=== PATIENT | female | born 1930 | race Caucasian/White ===

== ENCOUNTER 2016-06-30 12:45 | Inpatient (IN) | payer OTHER, MEDICAID ==
[~2016-06-30 12:45] MED LIST: CITROMA ONE
[2016-06-30] MEDS ORDERED: NS 1000 ML 1,000 ML IV ONE ×2 (12:48→18:33)
[2016-06-30] MEDS ORDERED: CALCIUM GLUCONATE 10% IV ONE (12:49)
[2016-06-30] MEDS ORDERED: HUMULIN R 100 UNITS in NS 100 ML IV 100 ML IV PRN (12:49)
[2016-06-30] MEDS ORDERED: LASIX IVP ONE ×2 (12:54→13:13)
[2016-06-30] MEDS ORDERED: PROVENTIL NEB TX 0.083% 2.5MG/ 3ML NEB ONE (12:56)
--- NOTE | 2016-06-30 12:57 | DR.GENAD ---
HPI - PCP Primary Care Physician: Grant - Complaint/Symptoms Chief Complaint Doctors Comments: Patient sent from CT secondary to elevated potassium level 6.5. Daughter states that she has had decreasing PO intake for one month. PMH - PMH Past Medical History: Anxiety, Dementia, Depression, GERD, Hypertension, Hypothyroidism, Renal Disease Past Surgical History: Yes Surgical History: Cholecystectomy, Hysterectomy, Ortho Surgery, Thyroidectomy - Family History Family Medical History: Coronary Artery Disease, Heart Failure - Social History Do you use any recreational Drugs:: No ROS - Review of Systems Constitutional: No Symptoms Reported Eyes: No Symptoms Reported ENTM: No Symptoms Reported Respiratoy: No Symptoms Reported Cardiovascular: No Symptoms Reported Gastrointestinal/Abdominal: No Symptoms Reported Genitourinary: No Symptoms Reported Neurological: No Symptoms Reported Musculoskeletal: No Symptoms Reported Integumentary: No Symptoms Reported Hematologic/Lymphatic: No Symptoms Reported Endocrine: No Symptoms Reported Psychiatric: No Symptoms Reported All Other Systems: Reviewed and Negative PE - Vital Signs Vitals: Temperature 97.9 F Pulse Rate 67 Respiratory Rate 16 Blood Pressure [Right Arm] 141/72 Blood Pressure [Left Arm] 129/69 Blood Pressure [Left Calf] 158/81 Blood Pressure 112/54 O2 Sat by Pulse Oximetry 98 - General Limitations: No Limitations General Appearance: Alert, In No Apparent Distress - Head Head Exam: Normal Inspection, Atraumatic - Eyes Eye exam: Normal Appearance, PERRL, EOMI - ENT ENT Exam: Normal Exam, Mucous Membranes Dry External Ear Exam: Normal External Inspection TM/Canal Exam: Bilateral Normal Nose Exam: Normal Nose Exam Mouth Exam: Normal Inspection Throat Exam: Normal Inspection - Neck Neck Exam: Normal Inspection - Chest Chest Inspection: Normal Inspection - Respiratory Respiratory Exam: Normal Lung Sounds Bilat Respiratory Exam: Bilateral Clear to Auscultation - Cardiovascular Cardiovascular Exam: Regular Rate - Abdominal Exam Abdominal Exam: Normal Inspection Abdominal Tenderness: negative: RUQ, RLQ, LUQ, LLQ, Epigastrium, Suprapubic, Diffuse, Mild, Moderate, Severe, Other - Extremities Extremities Exam: Normal Inspection - Back Back Exam: Other (large decubitus ulcer) - Neurologic Neurological Exam: Alert, Oriented X3, CN II-XII Intact - Psychiatric Psychiatric Exam: Normal Affect - Skin Skin Exam: Warm, Dry, Intact ROR - Labs Reviewed Laboratory Results Reviewed?: Yes (Urine:nitrite +,Leuk3+, Bld4+wbc 25-50) Result Diagrams: 06/30/16 12:55 06/30/16 12:55 Laboratory: WBC 25.4 X10^3/uL (3.6-10.0) H* 06/30/16 12:55 RBC 3.55 X10^6/uL (3.5-5.4) 06/30/16 12:55 Hgb 11.2 g/dL (12.0-16.0) L 06/30/16 12:55 Hct 34.1 % (36.0-47.0) L 06/30/16 12:55 MCV 96.2 fL (80.0-100.0) 06/30/16 12:55 MCH 31.5 pg (27.0-34.0) 06/30/16 12:55 MCHC 32.8 g/dL (33.0-35.0) L 06/30/16 12:55 RDW 13.1 % (11.6-16.5) 06/30/16 12:55 Plt Count 427 X10^3/uL (150.0-450.0) 06/30/16 12:55 Plt Count Comment Adequate (ADEQUATE) 06/30/16 12:55 MPV 7.5 fL (7.4-11.0) 06/30/16 12:55 Neut % 88.3 % (42.0-75.0) H 06/30/16 12:55 Lymph % 7.7 % (21.0-51.0) L 06/30/16 12:55 [place] % 3.5 % (0.0-13.0) 06/30/16 12:55 Eos % 0.0 % (0.9-2.9) L 06/30/16 12:55 Baso % 0.5 % (0.2-1.0) 06/30/16 12:55 Neut # 22.4 x10^3/uL (2.2-4.8) H 06/30/16 12:55 Lymph # 2.0 X10^3/uL (1.3-2.9) 06/30/16 12:55 [place] # 0.9 x10^3/uL (0.3-0.8) H 06/30/16 12:55 Eos # 0.0 x10^3/uL (0.0-0.2) 06/30/16 12:55 Baso # 0.1 X10^3/uL (0.0-0.1) 06/30/16 12:55 Absolute Nucleated RBC 0.0 /100WBC 06/30/16 12:55 Total Counted 100 06/30/16 12:55 Neutrophils % (Manual) 92 % (39-76) H 06/30/16 12:55 Band Neutrophils % 6 % (0-10) 06/30/16 12:55 Lymphocytes % (Manual) 2 % (13-43) L 06/30/16 12:55 Plt Morphology Comment Normal (NORMAL) 06/30/16 12:55 RBC Morphology Normal (NORMAL) 06/30/16 12:55 Sodium 140 mmol/L (136-145) 06/30/16 12:55 Corrected Sodium 140 mmol/L (136-145) 06/30/16 12:55 Potassium 6.2 mmol/L (3.5-5.1) H* 06/30/16 12:55 Chloride 105 mmol/L (98-107) 06/30/16 12:55 Carbon Dioxide 29.9 mmol/L (21-32) 06/30/16 12:55 BUN 59 mg/dL (7-18) H 06/30/16 12:55 Creatinine 3.54 mg/dL (0.55-1.02) H 06/30/16 12:55 Est GFR (MDRD) Af Amer 16 (>60) L 06/30/16 12:55 Est GFR (MDRD) Non-Af 13 (>60) L 06/30/16 12:55 Glucose 119 mg/dL (65-99) H 06/30/16 12:55 Calcium 8.6 mg/dL (8.5-10.1) 06/30/16 12:55 Corrected Calcium 10.1 mg/dL (8.5-10.1) 06/30/16 12:55 Total Bilirubin 0.90 mg/dL (0.2-1.0) 06/30/16 12:55 AST 10 Units/L (15-37) L 06/30/16 12:55 ALT 10 Units/L (12-78) L 06/30/16 12:55 Alkaline Phosphatase 127 Units/L (46-116) H 06/30/16 12:55 Creatine Kinase 7 Units/L (26-192) L 06/30/16 12:55 CK-MB (CK-2) < 1.0 ng/mL (0-4.0) 06/30/16 12:55 CK/CKMB % Calc 14.3 % (<4) 06/30/16 12:55 Troponin I < 0.02 ng/mL (0-1.5) 06/30/16 12:55 Total Protein 7.0 g/dL (6.4-8.2) 06/30/16 12:55 Albumin 2.1 g/dL (3.4-5.0) L 06/30/16 12:55 Globulin 4.9 g/dL (2.5-4.5) H 06/30/16 12:55 Albumin/Globulin Ratio 0.4 Ratio (1.1-2.1) L 06/30/16 12:55 Specimen Type Catherized urine 06/30/16 13:41 Urine Color Yellow (YELLOW) 06/30/16 13:41 Urine Appearance Cloudy (CLEAR) 06/30/16 13:41 Urine pH 5.0 (5.0 - 8.0) 06/30/16 13:41 Ur Specific [place] 1.010 (1.000-1.030) 06/30/16 13:41 Urine Protein 2+ (NEGATIVE) 06/30/16 13:41 Urine Glucose (UA) Negative (NEGATIVE) 06/30/16 13:41 Urine Ketones 1+ (NEGATIVE) 06/30/16 13:41 Urine Occult Blood 4+ (NEGATIVE) 06/30/16 13:41 Urine Nitrite Positive (NEGATIVE) 06/30/16 13:41 Urine Bilirubin Negative (NEGATIVE) 06/30/16 13:41 Urine Urobilinogen 1+ (NORMAL) 06/30/16 13:41 Ur Leukocyte Esterase 3+ (NEGATIVE) 06/30/16 13:41 Urine RBC 6-10 /HPF (NEGATIVE) 06/30/16 13:41 Urine WBC 25-50 /HPF (NEGATIVE) 06/30/16 13:41 Ur Squamous Epith Cells Rare /HPF (NEGATIVE) 06/30/16 13:41 Urine Bacteria 3+ /HPF (NEGATIVE) 06/30/16 13:41 Ur Culture Indicated? Yes/culture set up 06/30/16 13:41 - Diagnosis Discharge Problem: Hyperkalemia, Dehydration, Renal failure UTI (urinary tract infection) Qualifiers: Urinary tract infection type: acute cystitis Hematuria presence: with hematuria Qualified Code(s): N30.01 - Acute cystitis with hematuria - Follow ups/Referrals Follow ups/Referrals: Dank Burns [Primary Care Provider] - 3 days - Instructions
[2016-06-30] MEDS ORDERED: PROVENTIL NEB TX 0.083% 2.5MG/ 3ML ONE (13:03)
[2016-06-30] MEDS ORDERED: DEMEROL INJ IVP ONE (13:04)
[2016-06-30 13:08] LABS: BASOPHILS # (AUTO) 0.1 X10^3/uL (0.0-0.1); BASOPHILS % (AUTO) 0.5 % (0.2-1.0); HEMATOCRIT 34.1 % (36.0-47.0); HEMOGLOBIN 11.2 g/dL (12.0-16.0); LYMPHOCYTES % (AUTO) 7.7 % (21.0-51.0); MEAN CORPUSCULAR HEMOGLOBIN 31.5 pg (27.0-34.0); MEAN CORPUSCULAR HGB CONC 32.8 g/dL (33.0-35.0); MEAN CORPUSCULAR VOLUME 96.2 fL (80.0-100.0); MEAN PLATELET VOLUME 7.5 fL (7.4-11.0); MONOCYTES # (AUTO) 0.9 x10^3/uL (0.3-0.8); MONOCYTES % (AUTO) 3.5 % (0.0-13.0); NEUTROPHILS # (AUTO) 22.4 x10^3/uL (2.2-4.8); NEUTROPHILS % (AUTO) 88.3 % (42.0-75.0); PLATELET COUNT 427 X10^3/uL (150.0-450.0); RED BLOOD COUNT 3.55 X10^6/uL (3.5-5.4); RED CELL DISTRIBUTION WIDTH 13.1 % (11.6-16.5)
[2016-06-30 13:09] LABS: WHITE BLOOD COUNT 25.4 X10^3/uL (3.6-10.0)
[2016-06-30] MEDS ORDERED: HUMULIN R IV ONE (13:12)
[2016-06-30 13:13] LABS: BAND NEUTROPHILS % 6 % (0-10); PLATELET MORPHOLOGY COMMENT NORMAL (NORMAL)
[2016-06-30] MEDS ORDERED: NS 1000 ML 1,000 ML ONE (13:13)
[2016-06-30] MEDS ORDERED: HUMULIN R ONE (13:14)
[2016-06-30] MEDS ORDERED: DEMEROL INJ ONE (13:14)
[2016-06-30 13:31] LABS: ALANINE AMINOTRANSFERASE 10 Units/L (12-78); ALBUMIN 2.1 g/dL (3.4-5.0); ALKALINE PHOSPHATASE 127 Units/L (46-116); ASPARTATE AMINO TRANSFERASE 10 Units/L (15-37); BLOOD UREA NITROGEN 59 mg/dL (7-18); CALCIUM 8.6 mg/dL (8.5-10.1); CARBON DIOXIDE 29.9 mmol/L (21-32); CHLORIDE 105 mmol/L (98-107); CKMB % 14.3 % (<4); COR CA(FOR HYPOALB) 10.1 mg/dL (8.5-10.1); COR NA(FOR HYPERGLY) 140 mmol/L (136-145); CREATINE KINASE 7 Units/L (26-192); CREATINE KINASE MB < 1.0 ng/mL (0-4.0); CREATININE 3.54 mg/dL (0.55-1.02); GLUCOSE 119 mg/dL (65-99); SODIUM 140 mmol/L (136-145); TROPONIN I < 0.02 ng/mL (0-1.5); eGFR BLACK RACES 16 (>60); eGFR NON BLACK RACES 13 (>60)
--- NOTE | 2016-06-30 13:44 | RAD ---
HISTORY: Chest pain and dehydration Study: Single view chest. Comparison: September 20, 2014. Findings: The trachea is midline. The cardiac silhouette is enlarged with a tortuous thoracic aorta. Backgrou nd changes of obstructive airways disease are observed. The lungs are otherwise grossly clear withou t focal infiltrate or effusion. The bony thorax is unremarkable. IMPRESSION: 1. No acute cardiopulmonary changes seen, as above. 2. Cardiomegaly and aortic ectasia/dilatation remains. Reported By:
[2016-06-30] MEDS ORDERED: ZOFRAN INJ 4 MG VIAL IVP ONE (13:53)
[2016-06-30] MEDS ORDERED: ZOFRAN INJ 4 MG VIAL ONE (13:54)
[2016-06-30 13:56] LABS: BILIRUBIN,URINE NEGATIVE (NEGATIVE); BLOOD/HEMOGLOBIN,URINE 4+ (NEGATIVE); GLUCOSE, URINE NEGATIVE (NEGATIVE); KETONES,URINE 1+ (NEGATIVE); LEUKOCYTE ESTERASE ,URINE 3+ (NEGATIVE); NITRITES,URINE POSITIVE (NEGATIVE); PROTEIN,URINE 2+ (NEGATIVE); UROBILINOGEN,URINE 1+ (NORMAL)
[2016-06-30 14:02] LABS: APPEARANCE,URINE CLOUDY (CLEAR); BACTERIA,URINE 3+ /HPF (NEGATIVE); COLOR,URINE YELLOW (YELLOW); SQUAMOUS EPITHELIAL CELL,UR RARE /HPF (NEGATIVE)
[2016-06-30] MEDS ORDERED: TYLENOL 500 MG TAB EXTRA STRENGTH PO PRN (14:40)
[2016-06-30] MEDS ORDERED: DEMEROL INJ IVP PRN (14:51)
[2016-06-30] MEDS ORDERED: LR 1000 ML IV 1,000 ML IV SCH (15:00)
[2016-06-30] MEDS ORDERED: LR 1000 ML IV 1,000 ML IV ONE (15:10)
[2016-06-30] MEDS: AMPICILLIN VIAL 1 GM 1 GM in NS 50 ML IV + SPIKE MINIBAG* 50 ML IV SCH ×2 (16:52→21:16)
[2016-06-30] MEDS: DURAGESIC 75 mcg/HR PATCH TD SCH (16:52)
[2016-06-30 16:57] LABS: BLOOD UREA NITROGEN 59 mg/dL (7-18); CALCIUM 8.5 mg/dL (8.5-10.1); CARBON DIOXIDE 28.6 mmol/L (21-32); CHLORIDE 107 mmol/L (98-107); CREATININE 3.51 mg/dL (0.55-1.02); GLUCOSE 88 mg/dL (65-99); SODIUM 142 mmol/L (136-145); eGFR BLACK RACES 16 (>60); eGFR NON BLACK RACES 13 (>60)
[2016-06-30] MEDS ORDERED: TYGACIL 50 MG VIAL 100 MG in NS 100 ML IV 100 ML IV ONE (18:29)
[2016-06-30] MEDS ORDERED: KAYEXALATE PO ONE (18:34)
[2016-06-30 19:39] VITALS: BMI 30.7
[2016-06-30] MEDS: NS 1000 ML 1,000 ML IV SCH (19:46)
[2016-06-30] MEDS: SNACK - Diabetic Appropriate PO SCH (20:14)
[2016-06-30 20:52] LABS: CALCIUM 8.4 mg/dL (8.5-10.1); CARBON DIOXIDE 30.5 mmol/L (21-32); CREATININE 3.59 mg/dL (0.55-1.02)
[2016-06-30] MEDS ORDERED: [UNRECOGNIZED DRUG - OTHER] PO SCH (21:00)
[2016-06-30] MEDS ORDERED: LASIX PO SCH (21:00)
[2016-06-30] MEDS: ARTIFICIAL TEARS DROPS EACHEYE SCH (21:19)
[2016-06-30] MEDS: NORCO 10/325 TAB PO SCH (21:20)
[2016-06-30] MEDS: NAPROSYN PO SCH (21:20)
[2016-06-30] MEDS: ELDERTONIC + WINE PO SCH (21:23)
[2016-06-30] MEDS: PATIENT'S HOME MEDICATION RESPIRATORY (Potassium Chloride [Potassium Chloride Er] 20 MEQ) PO SCH (23:19)
[2016-07-01] MEDS: AMPICILLIN VIAL 1 GM 1 GM in NS 50 ML IV + SPIKE MINIBAG* 50 ML IV SCH ×2 (03:00→09:13)
[2016-07-01 03:01] LABS: BASOPHILS # (AUTO) 0.1 X10^3/uL (0.0-0.1); BASOPHILS % (AUTO) 0.4 % (0.2-1.0); HEMATOCRIT 29.2 % (36.0-47.0); HEMOGLOBIN 9.4 g/dL (12.0-16.0); LYMPHOCYTES # (AUTO) 1.2 X10^3/uL (1.3-2.9); MEAN CORPUSCULAR HEMOGLOBIN 31.4 pg (27.0-34.0); MEAN CORPUSCULAR HGB CONC 32.3 g/dL (33.0-35.0); MEAN CORPUSCULAR VOLUME 97.1 fL (80.0-100.0); MEAN PLATELET VOLUME 7.6 fL (7.4-11.0); MONOCYTES # (AUTO) 0.6 x10^3/uL (0.3-0.8); MONOCYTES % (AUTO) 3.1 % (0.0-13.0); NEUTROPHILS % (AUTO) 90.5 % (42.0-75.0); PLATELET COUNT 333 X10^3/uL (150.0-450.0); RED CELL DISTRIBUTION WIDTH 13.2 % (11.6-16.5); WHITE BLOOD COUNT 19.9 X10^3/uL (3.6-10.0)
[2016-07-01 03:03] LABS: BLOOD UREA NITROGEN 60 mg/dL (7-18); CALCIUM 7.7 mg/dL (8.5-10.1); CARBON DIOXIDE 29.2 mmol/L (21-32); CHLORIDE 107 mmol/L (98-107); CREATININE 3.25 mg/dL (0.55-1.02); GLUCOSE 109 mg/dL (65-99); SODIUM 141 mmol/L (136-145); eGFR BLACK RACES 17 (>60); eGFR NON BLACK RACES 14 (>60)
[2016-07-01] MEDS: NS 1000 ML 1,000 ML IV SCH ×4 (03:10→23:00)
[2016-07-01 03:18] LABS: BAND NEUTROPHILS % 20 % (0-10); PLATELET MORPHOLOGY COMMENT NORMAL (NORMAL)
[2016-07-01] MEDS: ELDERTONIC + WINE PO SCH ×3 (03:25→21:34)
[2016-07-01] MEDS ORDERED: TYGACIL 50 MG VIAL 50 MG in NS 100 ML IV 100 ML IV SCH (04:29)
[2016-07-01] MEDS: PATIENT'S HOME MEDICATION RESPIRATORY (Potassium Chloride [Potassium Chloride Er] 20 MEQ) PO SCH (05:40)
[2016-07-01] MEDS: NORCO 10/325 TAB PO SCH ×5 (06:15→21:33)
[2016-07-01 08:28] LABS: ALBUMIN 1.7 g/dL (3.4-5.0); BILIRUBIN,DIRECT 0.11 mg/dL (0-0.2); TOTAL PROTEIN 5.8 g/dL (6.4-8.2)
[2016-07-01] MEDS: ALBUMIN HUMAN 25%- 100ML 100 ML IV SCH (09:12)
[2016-07-01] MEDS: ARTIFICIAL TEARS DROPS EACHEYE SCH ×2 (09:13→21:33)
[2016-07-01] MEDS: ZINC SULFATE PO SCH (09:13)
[2016-07-01] MEDS: COLACE CAP 100 MG PO SCH (09:13)
[2016-07-01] MEDS: PEPCID TAB 20 MG PO SCH (09:13)
[2016-07-01] MEDS: SYNTHROID 100 mcg TAB PO SCH (09:13)
[2016-07-01] MEDS: NAPROSYN PO SCH ×3 (09:13→21:34)
[2016-07-01] MEDS ORDERED: PHARMACY CONSULT - DOSE _____ XX SCH (10:00)
[2016-07-01] MEDS: LEVAQUIN PREMIX IV 750 MG 750 MG/150 ML BAG IV SCH (11:16)
--- NOTE | 2016-07-01 13:25 | PCM.PROG ---
Progress Note - Progress Note for Day of Date: 07/01/16 - Subjective Subjective: PATIENT RESTS IN BED, DAUGHTER AT BEDSIDE. PATIENT IS DROWSY, CONFUSED. PATIENT IS ADMITTED FOR HYPERKALEMIA, UTI, AND DEHYDRATION. DAUGHTER STATES PATIENT'S APPETITE HAS BEEN VERY POOR. SHE STATES PATIENT HAS HAD DECREASED ORAL INTAKE FOR SEVERAL WEEKS AND IS NOTED WITH NO DESIRE TO EAT. DAUGHTER REPORTS PATIENT HAD BEEN AMBULATING AT THE [facility], HOWEVER, NOW WAS UNABLE DUE TO WEAKNESSF ROM POOR NUTRITION. WE SPEAK WITH DAUGHTER CONCERNING POSSIBLE IV NUTRITION, IF NO IMPROVEMENT. SHE VOICES UNDERSTANDING. CBC WNL EXCEPT: WBC 19.9, H/H 9.4/29.2. CMP WNL EXCEPT: BUN/CREAT 60/3.25, GFR 14, GLUCOSE 109, CALCIUM 7.7, TOT PROTEIN 5.8, ALBUMIN 1.7. WE WILL CONTINUE IV HYDRATION. WE WILL START ALBUMIN IV, CHANGE ANTIBIOTICS TO FORTAZ AND LEVAQUIN, CONSULT SPEECH THERAPY TO ENUSRE SAFE SWALLOWING, AND CONTINUE TO MONITOR. WE WILL FOLLOW UP IN AM WITH ADDITIONAL LABS. - Past Medical Family Social History Past Med/Fam/Surg Hx: No changes since H&P Allergies: Allergies Codeine Allergy (Mild, Verified 06/30/16 12:48) CONFUSION Morphine Allergy (Mild, Verified 06/30/16 12:48) CONFUSION - Review of Systems ROS: No change since H&P - Vital Signs and I&O's Vital Signs: Temperature 97.5 F Pulse Rate [Left Brachial] 74 Respiratory Rate 20 Blood Pressure [Right Arm] 82/35 O2 Sat by Pulse Oximetry 100 Intake and Output: Intake & Output 06/29/16 06/30/16 07/01/16 07/02/16 10:59 11:59 11:59 11:59 Intake Total 2200 Output Total 350 Balance 1850 - Physical Exam Oriented: Not Oriented Eyes: Normal. negative: Discharge, Redness Ear: Normal. negative: Swelling, Ecchymosis, Hemotypanum, Abrasion, Laceration Nose: Normal. negative: Injected, Discharge, Blood Throat: Dry. negative: Tonsillar Hypertrophy, Red, Exudate Respiratory: Normal Cardiovascular: Normal. negative: Murmur, Edema : Hematuria, Frequency, Discharge Auscultation: Bowel Sounds: Decreased. negative: Bruit Palpation: Normal. negative: Spleen Enlarged, Liver Enlarged, Mass Pulsatile Tenderness: Normal. negative: Rebound, Guarding, Rigidity Skin: Decreased Turgur, Wound (Right Buttock: 7 small areas of breakdown, MASD; Sacrum: [id number], MASD; Right Knee skin tear; Left upper arm skin tear; Left Lower leg skin tear) Musculoskeletal: Instability (Non-ambulatory) Psychiatric: Other (Confusion) Mood Description: Flat Affect: Flat Speech Pattern: Clear, Inappropriate - Laboratory and Diagnostics Result Diagrams: 07/01/16 02:50 07/01/16 02:50 Labs: Laboratory WBC 19.9 X10^3/uL (3.6-10.0) H 07/01/16 02:50 RBC 3.00 X10^6/uL (3.5-5.4) L 07/01/16 02:50 Hgb 9.4 g/dL (12.0-16.0) L 07/01/16 02:50 Hct 29.2 % (36.0-47.0) L 07/01/16 02:50 MCV 97.1 fL (80.0-100.0) 07/01/16 02:50 MCH 31.4 pg (27.0-34.0) 07/01/16 02:50 MCHC 32.3 g/dL (33.0-35.0) L 07/01/16 02:50 RDW 13.2 % (11.6-16.5) 07/01/16 02:50 Plt Count 333 X10^3/uL (150.0-450.0) 07/01/16 02:50 Plt Count Comment Adequate (ADEQUATE) 07/01/16 02:50 MPV 7.6 fL (7.4-11.0) 07/01/16 02:50 Neut % 90.5 % (42.0-75.0) H 07/01/16 02:50 Lymph % 6.0 % (21.0-51.0) L 07/01/16 02:50 [place] % 3.1 % (0.0-13.0) 07/01/16 02:50 Eos % 0.0 % (0.9-2.9) L 07/01/16 02:50 Baso % 0.4 % (0.2-1.0) 07/01/16 02:50 Neut # 18.0 x10^3/uL (2.2-4.8) H 07/01/16 02:50 Lymph # 1.2 X10^3/uL (1.3-2.9) L 07/01/16 02:50 [place] # 0.6 x10^3/uL (0.3-0.8) 07/01/16 02:50 Eos # 0.0 x10^3/uL (0.0-0.2) 07/01/16 02:50 Baso # 0.1 X10^3/uL (0.0-0.1) 07/01/16 02:50 Absolute Nucleated RBC 0.0 /100WBC 07/01/16 02:50 Total Counted 100 07/01/16 02:50 Neutrophils % (Manual) 69 % (39-76) 07/01/16 02:50 Band Neutrophils % 20 % (0-10) H 07/01/16 02:50 Lymphocytes % (Manual) 10 % (13-43) L 07/01/16 02:50 Monocytes % (Manual) 1 % (4-9) L 07/01/16 02:50 Plt Morphology Comment Normal (NORMAL) 07/01/16 02:50 RBC Morphology Normal (NORMAL) 07/01/16 02:50 Sodium 141 mmol/L (136-145) 07/01/16 02:50 Corrected Sodium TNP 07/01/16 02:50 Potassium 4.5 mmol/L (3.5-5.1) 07/01/16 02:50 Chloride 107 mmol/L (98-107) 07/01/16 02:50 Carbon Dioxide 29.2 mmol/L (21-32) 07/01/16 02:50 BUN 60 mg/dL (7-18) H 07/01/16 02:50 Creatinine 3.25 mg/dL (0.55-1.02) H 07/01/16 02:50 Est GFR (MDRD) Af Amer 17 (>60) L 07/01/16 02:50 Est GFR (MDRD) Non-Af 14 (>60) L 07/01/16 02:50 Glucose 109 mg/dL (65-99) H 07/01/16 02:50 Calcium 7.7 mg/dL (8.5-10.1) L 07/01/16 02:50 Corrected Calcium 10.1 mg/dL (8.5-10.1) 06/30/16 12:55 Total Bilirubin 0.60 mg/dL (0.2-1.0) 07/01/16 02:50 Direct Bilirubin 0.11 mg/dL (0-0.2) 07/01/16 02:50 Indirect Bilirubin 0.49 mg/dL (0.2-0.8) 07/01/16 02:50 AST 12 Units/L (15-37) L 07/01/16 02:50 ALT 9 Units/L (12-78) L 07/01/16 02:50 Alkaline Phosphatase 110 Units/L (46-116) 07/01/16 02:50 Creatine Kinase 7 Units/L (26-192) L 06/30/16 12:55 CK-MB (CK-2) < 1.0 ng/mL (0-4.0) 06/30/16 12:55 CK/CKMB % Calc 14.3 % (<4) 06/30/16 12:55 Troponin I < 0.02 ng/mL (0-1.5) 06/30/16 12:55 Total Protein 5.8 g/dL (6.4-8.2) L 07/01/16 02:50 Albumin 1.7 g/dL (3.4-5.0) L 07/01/16 02:50 Globulin 4.1 g/dL (2.5-4.5) 07/01/16 02:50 Albumin/Globulin Ratio 0.4 Ratio (1.1-2.1) L 07/01/16 02:50 Specimen Type Catherized urine 06/30/16 13:41 Urine Color Yellow (YELLOW) 06/30/16 13:41 Urine Appearance Cloudy (CLEAR) 06/30/16 13:41 Urine pH 5.0 (5.0 - 8.0) 06/30/16 13:41 Ur Specific [place] 1.010 (1.000-1.030) 06/30/16 13:41 Urine Protein 2+ (NEGATIVE) 06/30/16 13:41 Urine Glucose (UA) Negative (NEGATIVE) 06/30/16 13:41 Urine Ketones 1+ (NEGATIVE) 06/30/16 13:41 Urine Occult Blood 4+ (NEGATIVE) 06/30/16 13:41 Urine Nitrite Positive (NEGATIVE) 06/30/16 13:41 Urine Bilirubin Negative (NEGATIVE) 06/30/16 13:41 Urine Urobilinogen 1+ (NORMAL) 06/30/16 13:41 Ur Leukocyte Esterase 3+ (NEGATIVE) 06/30/16 13:41 Urine RBC 6-10 /HPF (NEGATIVE) 06/30/16 13:41 Urine WBC 25-50 /HPF (NEGATIVE) 06/30/16 13:41 Ur Squamous Epith Cells Rare /HPF (NEGATIVE) 06/30/16 13:41 Urine Bacteria 3+ /HPF (NEGATIVE) 06/30/16 13:41 Ur Culture Indicated? Yes/culture set up 06/30/16 13:41 - Plan (1) Dehydration Status: Acute Plan: CONTINUE IV FLUIDS, MONITOR LABS. (2) Hyperkalemia Status: Acute Plan: ABOVE. (3) Renal failure Status: Acute Plan: ABOVE. (4) UTI (urinary tract infection) Status: Acute Qualifiers: Urinary tract infection type: acute cystitis Hematuria presence: with hematuria Indwelling urinary catheter type: I Encounter type: E Qualified Code(s): N30.01 - Acute cystitis with hematuria Plan: START FORTAZ, LEVAQUIN, MONITOR. (5) CHF (congestive heart failure) Status: Chronic Qualifiers: Congestive heart failure type: combined Congestive heart failure chronicity : chronic Qualified Code(s): I50.42 - Chronic combined systolic (congestive) and diastolic (congestive) heart failure (6) Dementia Status: Chronic Qualifiers: Dementia type: vascular dementia Alzheimer's disease onset: A Dementia behavioral disturbance: without behavioral disturbance Qualified Code(s): F01.50 - Vascular dementia without behavioral disturbance (7) HTN (hypertension) Status: Chronic Qualifiers: Hypertension type: essential hypertension Qualified Code(s): I10 - Essential (primary) hypertension (8) Hypothyroidism Status: Chronic Qualifiers: Hypothyroidism type: acquired Qualified Code(s): E03.9 - Hypothyroidism, unspecified
[2016-07-01] MEDS: ZOSYN VIAL 2.25 GM 2.25 GM in NS 100 ML IV + SPIKE MINIBAG* 100 ML IV SCH ×2 (13:52→21:21)
[2016-07-01] MEDS: SNACK - Diabetic Appropriate PO SCH (21:32)
[2016-07-02] MEDS: NS 1000 ML 1,000 ML IV SCH ×6 (02:11→23:18)
[2016-07-02] MEDS: ZOSYN VIAL 2.25 GM 2.25 GM in NS 100 ML IV + SPIKE MINIBAG* 100 ML IV SCH ×3 (06:15→21:18)
[2016-07-02] MEDS: NORCO 10/325 TAB PO SCH ×3 (06:16→21:25)
[2016-07-02 06:20] LABS: BASOPHILS % (AUTO) 0.1 % (0.2-1.0); HEMATOCRIT 28.8 % (36.0-47.0); HEMOGLOBIN 9.4 g/dL (12.0-16.0); LYMPHOCYTES # (AUTO) 1.3 X10^3/uL (1.3-2.9); LYMPHOCYTES % (AUTO) 9.2 % (21.0-51.0); MEAN CORPUSCULAR HEMOGLOBIN 31.8 pg (27.0-34.0); MEAN CORPUSCULAR HGB CONC 32.7 g/dL (33.0-35.0); MEAN CORPUSCULAR VOLUME 97.1 fL (80.0-100.0); MEAN PLATELET VOLUME 7.7 fL (7.4-11.0); MONOCYTES # (AUTO) 0.4 x10^3/uL (0.3-0.8); MONOCYTES % (AUTO) 3.2 % (0.0-13.0); NEUTROPHILS # (AUTO) 12.1 x10^3/uL (2.2-4.8); NEUTROPHILS % (AUTO) 87.5 % (42.0-75.0); PLATELET COUNT 358 X10^3/uL (150.0-450.0); RED BLOOD COUNT 2.96 X10^6/uL (3.5-5.4); RED CELL DISTRIBUTION WIDTH 13.1 % (11.6-16.5); WHITE BLOOD COUNT 13.8 X10^3/uL (3.6-10.0)
[2016-07-02 06:36] LABS: ALANINE AMINOTRANSFERASE 11 Units/L (12-78); ALBUMIN 1.9 g/dL (3.4-5.0); ALKALINE PHOSPHATASE 119 Units/L (46-116); ASPARTATE AMINO TRANSFERASE 11 Units/L (15-37); BLOOD UREA NITROGEN 57 mg/dL (7-18); CALCIUM 7.4 mg/dL (8.5-10.1); CARBON DIOXIDE 27.1 mmol/L (21-32); CHLORIDE 114 mmol/L (98-107); COR CA(FOR HYPOALB) 9.1 mg/dL (8.5-10.1); CREATININE 2.58 mg/dL (0.55-1.02); GLUCOSE 88 mg/dL (65-99); TOTAL PROTEIN 5.7 g/dL (6.4-8.2); eGFR BLACK RACES 23 (>60); eGFR NON BLACK RACES 19 (>60)
[2016-07-02 06:46] LABS: SODIUM 151 mmol/L (136-145)
[2016-07-02] MEDS: COLACE CAP 100 MG PO SCH (08:15)
[2016-07-02] MEDS: NAPROSYN PO SCH ×2 (08:15→21:25)
[2016-07-02] MEDS: SYNTHROID 100 mcg TAB PO SCH (08:16)
[2016-07-02] MEDS: ZINC SULFATE PO SCH (08:16)
[2016-07-02] MEDS: ARTIFICIAL TEARS DROPS EACHEYE SCH ×2 (08:54→21:22)
[2016-07-02] MEDS: ALBUMIN HUMAN 25%- 100ML 100 ML IV SCH (08:57)
[2016-07-02] MEDS: SNACK - Diabetic Appropriate PO SCH (21:24)
[2016-07-02] MEDS: ELDERTONIC + WINE PO SCH (21:24)
[2016-07-03] MEDS: NS 1000 ML 1,000 ML IV SCH (03:30)
[2016-07-03] MEDS: ZOSYN VIAL 2.25 GM 2.25 GM in NS 100 ML IV + SPIKE MINIBAG* 100 ML IV SCH ×3 (05:02→21:22)
[2016-07-03] MEDS: NORCO 10/325 TAB PO SCH ×4 (05:03→22:29)
[2016-07-03 06:16] LABS: BASOPHILS % (AUTO) 0.3 % (0.2-1.0); EOSINOPHILS % (AUTO) 0.1 % (0.9-2.9); HEMATOCRIT 27.9 % (36.0-47.0); HEMOGLOBIN 9.2 g/dL (12.0-16.0); LYMPHOCYTES # (AUTO) 0.8 X10^3/uL (1.3-2.9); LYMPHOCYTES % (AUTO) 8.2 % (21.0-51.0); MEAN CORPUSCULAR HEMOGLOBIN 31.9 pg (27.0-34.0); MEAN CORPUSCULAR VOLUME 96.5 fL (80.0-100.0); MEAN PLATELET VOLUME 7.5 fL (7.4-11.0); MONOCYTES # (AUTO) 0.4 x10^3/uL (0.3-0.8); MONOCYTES % (AUTO) 4.3 % (0.0-13.0); NEUTROPHILS % (AUTO) 87.1 % (42.0-75.0); PLATELET COUNT 301 X10^3/uL (150.0-450.0); RED BLOOD COUNT 2.89 X10^6/uL (3.5-5.4); RED CELL DISTRIBUTION WIDTH 13.2 % (11.6-16.5); WHITE BLOOD COUNT 10.3 X10^3/uL (3.6-10.0)
[2016-07-03 06:25] LABS: ALANINE AMINOTRANSFERASE 9 Units/L (12-78); ALBUMIN 1.6 g/dL (3.4-5.0); ALKALINE PHOSPHATASE 123 Units/L (46-116); ASPARTATE AMINO TRANSFERASE 11 Units/L (15-37); BLOOD UREA NITROGEN 49 mg/dL (7-18); CALCIUM 7.4 mg/dL (8.5-10.1); CARBON DIOXIDE 23.6 mmol/L (21-32); COR CA(FOR HYPOALB) 9.3 mg/dL (8.5-10.1); CREATININE 2.07 mg/dL (0.55-1.02); GLUCOSE 92 mg/dL (65-99); TOTAL PROTEIN 5.3 g/dL (6.4-8.2); eGFR BLACK RACES 29 (>60); eGFR NON BLACK RACES 24 (>60)
--- NOTE | 2016-07-03 06:25 | RAD ---
HISTORY: Shortness of breath Study: Chest one view Comparison: June 30, 2016 Findings: The patient is rotated to the right. The heart is enlarged. No congestive heart failure is noted. Th e lungs are hypoinflated. No infiltrates or pleural effusions are identified. The bony thorax is unr emarkable. IMPRESSION: Cardiomegaly without congestive heart failure Lungs hypoinflated but clear Reported By:
[2016-07-03 06:32] LABS: SODIUM 155 mmol/L (136-145)
[2016-07-03 06:33] LABS: CHLORIDE 118 mmol/L (98-107)
[2016-07-03 06:39] LABS: BAND NEUTROPHILS % 3 % (0-10)
[2016-07-03 06:40] LABS: PLATELET MORPHOLOGY COMMENT NORMAL (NORMAL)
[2016-07-03] MEDS: ALBUMIN HUMAN 25%- 100ML 100 ML IV SCH (09:42)
[2016-07-03] MEDS: COLACE CAP 100 MG PO SCH (09:43)
[2016-07-03] MEDS: NAPROSYN PO SCH ×2 (09:44→21:24)
[2016-07-03] MEDS: PEPCID TAB 20 MG PO SCH (09:44)
[2016-07-03] MEDS: SYNTHROID 100 mcg TAB PO SCH (09:45)
[2016-07-03] MEDS: ZINC SULFATE PO SCH (09:46)
[2016-07-03] MEDS: ARTIFICIAL TEARS DROPS EACHEYE SCH ×2 (09:58→21:22)
[2016-07-03] MEDS: LEVAQUIN PREMIX IV 750 MG 750 MG/150 ML BAG IV SCH (10:56)
[2016-07-03] MEDS: NS 1/2 1000 ML IV 1,000 ML with POTASSIUM CHLORIDE INJ 20 MEQ VIAL 20 MEQ IV SCH ×4 (11:18→21:35)
[2016-07-03] MEDS: GENTAMICIN SULF (OPHTH) AFFEYE SCH ×3 (11:20→21:24)
[2016-07-03] MEDS: DURAGESIC 75 mcg/HR PATCH TD SCH (15:51)
--- NOTE | 2016-07-03 17:18 | PCM.PROG ---
Progress Note - Progress Note for Day of Date: 07/02/16 - Subjective Subjective: PATIENT IS IN [place] FOR HYPOTENSION. BLOOD PRESSURE HAS BEEN 80'/40'S. AT THIS TIME, BLOOD PRESSURE IS 113/36, PULSE 87. DAUGHTER AT BEDSIDE. PATIENT IS MORE ALERT THIS MORNING. PATIENT IS ADMITTED FOR HYPERKALEMIA, UTI, AND DEHYDRATION. DAUGHTER STATES PATIENT'S APPETITE CONTINUES TO BE VERY POOR. PATIENT CONTINUES TO BE VERY WEAK. CBC WNL EXCEPT: WBC 13.8, H/H 9.4/28.8. CMP WNL EXCEPT: BUN/CREAT 57/2.58, GFR 19, CALCIUM 7.4 , TOT PROTEIN 5.7, ALBUMIN 1.9. WE WILL CONTINUE CURRENT TREATMENT AND CONTINUE TO MONITOR. WE WILL FOLLOW UP IN AM WITH ADDITIONAL LABS. - Past Medical Family Social History Past Med/Fam/Surg Hx: No changes since H&P Allergies: Allergies Codeine Allergy (Mild, Verified 06/30/16 12:48) CONFUSION Morphine Allergy (Mild, Verified 06/30/16 12:48) CONFUSION - Review of Systems ROS: No change since H&P - Vital Signs and I&O's Vital Signs: Temperature 100.1 F Pulse Rate [Left Brachial] 72 Respiratory Rate 15 Blood Pressure [Right Arm] 164/62 O2 Sat by Pulse Oximetry 100 Intake and Output: Intake & Output 07/01/16 07/02/16 07/03/16 07/04/16 11:59 11:59 11:59 11:59 Intake Total 2200 6882 4728 Output Total 850 322 2319 Balance 1850 6482 [id number] - Physical Exam Oriented: Person Eyes: Normal. negative: Discharge, Redness Ear: Normal. negative: Swelling, Ecchymosis, Hemotypanum, Abrasion, Laceration Nose: Normal. negative: Injected, Discharge, Blood Throat: Dry. negative: Tonsillar Hypertrophy, Red, Exudate Respiratory: Normal Cardiovascular: Normal. negative: Murmur, Edema : Hematuria, Frequency, Discharge Auscultation: Bowel Sounds: Decreased. negative: Bruit Palpation: Normal. negative: Spleen Enlarged, Liver Enlarged, Mass Pulsatile Tenderness: Normal. negative: Rebound, Guarding, Rigidity Skin: Decreased Turgur, Wound (Right Buttock: 7 small areas of breakdown, MASD; Sacrum: 3ume5qck2.3cm, MASD; Right Knee skin tear; Left upper arm skin tear; Left Lower leg skin tear) Musculoskeletal: Instability (Non-ambulatory) Psychiatric: Other (Confusion) Mood Description: Calm, Appropriate Affect: Normal Speech Pattern: Clear, Appropriate - Laboratory and Diagnostics Result Diagrams: 07/03/16 05:15 07/03/16 05:15 Labs: Laboratory WBC 10.3 X10^3/uL (3.6-10.0) H 07/03/16 05:15 RBC 2.89 X10^6/uL (3.5-5.4) L 07/03/16 05:15 Hgb 9.2 g/dL (12.0-16.0) L 07/03/16 05:15 Hct 27.9 % (36.0-47.0) L 07/03/16 05:15 MCV 96.5 fL (80.0-100.0) 07/03/16 05:15 MCH 31.9 pg (27.0-34.0) 07/03/16 05:15 MCHC 33.0 g/dL (33.0-35.0) 07/03/16 05:15 RDW 13.2 % (11.6-16.5) 07/03/16 05:15 Plt Count 301 X10^3/uL (150.0-450.0) 07/03/16 05:15 Plt Count Comment Adequate (ADEQUATE) 07/03/16 05:15 MPV 7.5 fL (7.4-11.0) 07/03/16 05:15 Neut % 87.1 % (42.0-75.0) H 07/03/16 05:15 Lymph % 8.2 % (21.0-51.0) L 07/03/16 05:15 [place] % 4.3 % (0.0-13.0) 07/03/16 05:15 Eos % 0.1 % (0.9-2.9) L 07/03/16 05:15 Baso % 0.3 % (0.2-1.0) 07/03/16 05:15 Neut # 9.0 x10^3/uL (2.2-4.8) H 07/03/16 05:15 Lymph # 0.8 X10^3/uL (1.3-2.9) L 07/03/16 05:15 [place] # 0.4 x10^3/uL (0.3-0.8) 07/03/16 05:15 Eos # 0.0 x10^3/uL (0.0-0.2) 07/03/16 05:15 Baso # 0.0 X10^3/uL (0.0-0.1) 07/03/16 05:15 Absolute Nucleated RBC 0.0 /100WBC 07/03/16 05:15 Total Counted 100 07/03/16 05:15 Neutrophils % (Manual) 85 % (39-76) H 07/03/16 05:15 Band Neutrophils % 3 % (0-10) 07/03/16 05:15 Lymphocytes % (Manual) 10 % (13-43) L 07/03/16 05:15 Monocytes % (Manual) 2 % (4-9) L 07/03/16 05:15 Plt Morphology Comment Normal (NORMAL) 07/03/16 05:15 RBC Morphology Normal (NORMAL) 07/03/16 05:15 Sodium 155 mmol/L (136-145) H* 07/03/16 05:15 Corrected Sodium TNP 07/03/16 05:15 Potassium 2.4 mmol/L (3.5-5.1) L* 07/03/16 05:15 Chloride 118 mmol/L (98-107) H* 07/03/16 05:15 Carbon Dioxide 23.6 mmol/L (21-32) 07/03/16 05:15 BUN 49 mg/dL (7-18) H 07/03/16 05:15 Creatinine 2.07 mg/dL (0.55-1.02) H 07/03/16 05:15 Est GFR (MDRD) Af Amer 29 (>60) L 07/03/16 05:15 Est GFR (MDRD) Non-Af 24 (>60) L 07/03/16 05:15 Glucose 92 mg/dL (65-99) 07/03/16 05:15 Calcium 7.4 mg/dL (8.5-10.1) L 07/03/16 05:15 Corrected Calcium 9.3 mg/dL (8.5-10.1) 07/03/16 05:15 Magnesium 3.1 mg/dL (1.7-2.9) H 07/03/16 05:15 Total Bilirubin 0.40 mg/dL (0.2-1.0) 07/03/16 05:15 Direct Bilirubin 0.11 mg/dL (0-0.2) 07/01/16 02:50 Indirect Bilirubin 0.49 mg/dL (0.2-0.8) 07/01/16 02:50 AST 11 Units/L (15-37) L 07/03/16 05:15 ALT 9 Units/L (12-78) L 07/03/16 05:15 Alkaline Phosphatase 123 Units/L (46-116) H 07/03/16 05:15 Creatine Kinase 7 Units/L (26-192) L 06/30/16 12:55 CK-MB (CK-2) < 1.0 ng/mL (0-4.0) 06/30/16 12:55 CK/CKMB % Calc 14.3 % (<4) 06/30/16 12:55 Troponin I < 0.02 ng/mL (0-1.5) 06/30/16 12:55 Total Protein 5.3 g/dL (6.4-8.2) L 07/03/16 05:15 Albumin 1.6 g/dL (3.4-5.0) L 07/03/16 05:15 Globulin 3.7 g/dL (2.5-4.5) 07/03/16 05:15 Albumin/Globulin Ratio 0.4 Ratio (1.1-2.1) L 07/03/16 05:15 Specimen Type Catherized urine 06/30/16 13:41 Urine Color Yellow (YELLOW) 06/30/16 13:41 Urine Appearance Cloudy (CLEAR) 06/30/16 13:41 Urine pH 5.0 (5.0 - 8.0) 06/30/16 13:41 Ur Specific [place] 1.010 (1.000-1.030) 06/30/16 13:41 Urine Protein 2+ (NEGATIVE) 06/30/16 13:41 Urine Glucose (UA) Negative (NEGATIVE) 06/30/16 13:41 Urine Ketones 1+ (NEGATIVE) 06/30/16 13:41 Urine Occult Blood 4+ (NEGATIVE) 06/30/16 13:41 Urine Nitrite Positive (NEGATIVE) 06/30/16 13:41 Urine Bilirubin Negative (NEGATIVE) 06/30/16 13:41 Urine Urobilinogen 1+ (NORMAL) 06/30/16 13:41 Ur Leukocyte Esterase 3+ (NEGATIVE) 06/30/16 13:41 Urine RBC 6-10 /HPF (NEGATIVE) 06/30/16 13:41 Urine WBC 25-50 /HPF (NEGATIVE) 06/30/16 13:41 Ur Squamous Epith Cells Rare /HPF (NEGATIVE) 06/30/16 13:41 Urine Bacteria 3+ /HPF (NEGATIVE) 06/30/16 13:41 Ur Culture Indicated? Yes/culture set up 06/30/16 13:41 - Plan (1) Dehydration Status: Acute Plan: CONTINUE IV FLUIDS, MONITOR LABS. (2) Hypotension Status: Acute Qualifiers: Hypotension type: other hypotension type Trimester: T Qualified Code(s): I95.89 - Other hypotension Plan: CONTINUE TO MONITOR. (3) Hyperkalemia Status: Acute Plan: ABOVE. (4) Renal failure Status: Acute Plan: ABOVE. (5) UTI (urinary tract infection) Status: Acute Qualifiers: Urinary tract infection type: acute cystitis Hematuria presence: with hematuria Indwelling urinary catheter type: I Encounter type: E Qualified Code(s): N30.01 - Acute cystitis with hematuria Plan: START FORTAZ, LEVAQUIN, MONITOR. (6) CHF (congestive heart failure) Status: Chronic Qualifiers: Congestive heart failure type: combined Congestive heart failure chronicity : chronic Qualified Code(s): I50.42 - Chronic combined systolic (congestive) and diastolic (congestive) heart failure (7) Dementia Status: Chronic Qualifiers: Dementia type: vascular dementia Alzheimer's disease onset: A Dementia behavioral disturbance: without behavioral disturbance Qualified Code(s): F01.50 - Vascular dementia without behavioral disturbance (8) HTN (hypertension) Status: Chronic Qualifiers: Hypertension type: essential hypertension Qualified Code(s): I10 - Essential (primary) hypertension (9) Hypothyroidism Status: Chronic Qualifiers: Hypothyroidism type: acquired Qualified Code(s): E03.9 - Hypothyroidism, unspecified
--- NOTE | 2016-07-03 17:28 | PCM.PROG ---
Progress Note - Progress Note for Day of Date: 07/03/16 - Subjective Subjective: PATIENT'S BLOOD PRESSURE IS IMPROVED, 153/53. DAUGHTER AT BEDSIDE. PATIENT IS ALERT WITH INTERMITTENT CONFUSION. DAUGHTER REPORTS PATIENT'S LEFT EYE HAS YELLOW DRAINAGE. WHITE COUNT IS IMPROVING. SODIUM IS ELEVATED, POTASSIUM IS 2.4. CBC WNL EXCEPT: WBC 10.3, H/H 9.2/27.9. CMP WNL EXCEPT: BUN/ CREAT 49/2.07, GFR 24, CALCIUM 7.4, TOT PROTEIN 5.3, ALBUMIN 1.6. WE WILL CHANGE IV FLUIDS TO 1/2NS WITH POTASSIUM. WE WILL START GENTAMICIN EYE DROPS, CONTINUE CURRENT TREATMENT, AND CONTINUE TO MONITOR. WE WILL FOLLOW UP IN AM WITH ADDITIONAL LABS. - Past Medical Family Social History Past Med/Fam/Surg Hx: No changes since H&P Allergies: Allergies Codeine Allergy (Mild, Verified 06/30/16 12:48) CONFUSION Morphine Allergy (Mild, Verified 06/30/16 12:48) CONFUSION - Review of Systems ROS: No change since H&P - Vital Signs and I&O's Vital Signs: Temperature 100.1 F Pulse Rate [Left Brachial] 72 Respiratory Rate 15 Blood Pressure [Right Arm] 164/62 O2 Sat by Pulse Oximetry 100 Intake and Output: Intake & Output 07/01/16 07/02/16 07/03/16 07/04/16 11:59 11:59 11:59 11:59 Intake Total 2200 6882 4728 Output Total 140 746 7167 Balance 1850 6482 2878 - Physical Exam Oriented: Person Eyes: Normal. negative: Discharge, Redness Ear: Normal. negative: Swelling, Ecchymosis, Hemotypanum, Abrasion, Laceration Nose: Normal. negative: Injected, Discharge, Blood Throat: Dry. negative: Tonsillar Hypertrophy, Red, Exudate Respiratory: Normal Cardiovascular: Normal. negative: Murmur, Edema : Hematuria, Frequency, Discharge Auscultation: Bowel Sounds: Decreased. negative: Bruit Palpation: Normal. negative: Spleen Enlarged, Liver Enlarged, Mass Pulsatile Tenderness: Normal. negative: Rebound, Guarding, Rigidity Skin: Decreased Turgur, Wound (Right Buttock: 7 small areas of breakdown, MASD; Sacrum: [id number], MASD; Right Knee skin tear; Left upper arm skin tear; Left Lower leg skin tear) Musculoskeletal: Instability (Non-ambulatory) Psychiatric: Other (Intermittent Confusion) Mood Description: Calm, Appropriate Affect: Normal Speech Pattern: Clear, Appropriate - Laboratory and Diagnostics Result Diagrams: 07/03/16 05:15 07/03/16 05:15 Labs: Laboratory WBC 10.3 X10^3/uL (3.6-10.0) H 07/03/16 05:15 RBC 2.89 X10^6/uL (3.5-5.4) L 07/03/16 05:15 Hgb 9.2 g/dL (12.0-16.0) L 07/03/16 05:15 Hct 27.9 % (36.0-47.0) L 07/03/16 05:15 MCV 96.5 fL (80.0-100.0) 07/03/16 05:15 MCH 31.9 pg (27.0-34.0) 07/03/16 05:15 MCHC 33.0 g/dL (33.0-35.0) 07/03/16 05:15 RDW 13.2 % (11.6-16.5) 07/03/16 05:15 Plt Count 301 X10^3/uL (150.0-450.0) 07/03/16 05:15 Plt Count Comment Adequate (ADEQUATE) 07/03/16 05:15 MPV 7.5 fL (7.4-11.0) 07/03/16 05:15 Neut % 87.1 % (42.0-75.0) H 07/03/16 05:15 Lymph % 8.2 % (21.0-51.0) L 07/03/16 05:15 [place] % 4.3 % (0.0-13.0) 07/03/16 05:15 Eos % 0.1 % (0.9-2.9) L 07/03/16 05:15 Baso % 0.3 % (0.2-1.0) 07/03/16 05:15 Neut # 9.0 x10^3/uL (2.2-4.8) H 07/03/16 05:15 Lymph # 0.8 X10^3/uL (1.3-2.9) L 07/03/16 05:15 [place] # 0.4 x10^3/uL (0.3-0.8) 07/03/16 05:15 Eos # 0.0 x10^3/uL (0.0-0.2) 07/03/16 05:15 Baso # 0.0 X10^3/uL (0.0-0.1) 07/03/16 05:15 Absolute Nucleated RBC 0.0 /100WBC 07/03/16 05:15 Total Counted 100 07/03/16 05:15 Neutrophils % (Manual) 85 % (39-76) H 07/03/16 05:15 Band Neutrophils % 3 % (0-10) 07/03/16 05:15 Lymphocytes % (Manual) 10 % (13-43) L 07/03/16 05:15 Monocytes % (Manual) 2 % (4-9) L 07/03/16 05:15 Plt Morphology Comment Normal (NORMAL) 07/03/16 05:15 RBC Morphology Normal (NORMAL) 07/03/16 05:15 Sodium 155 mmol/L (136-145) H* 07/03/16 05:15 Corrected Sodium TNP 07/03/16 05:15 Potassium 2.4 mmol/L (3.5-5.1) L* 07/03/16 05:15 Chloride 118 mmol/L (98-107) H* 07/03/16 05:15 Carbon Dioxide 23.6 mmol/L (21-32) 07/03/16 05:15 BUN 49 mg/dL (7-18) H 07/03/16 05:15 Creatinine 2.07 mg/dL (0.55-1.02) H 07/03/16 05:15 Est GFR (MDRD) Af Amer 29 (>60) L 07/03/16 05:15 Est GFR (MDRD) Non-Af 24 (>60) L 07/03/16 05:15 Glucose 92 mg/dL (65-99) 07/03/16 05:15 Calcium 7.4 mg/dL (8.5-10.1) L 07/03/16 05:15 Corrected Calcium 9.3 mg/dL (8.5-10.1) 07/03/16 05:15 Magnesium 3.1 mg/dL (1.7-2.9) H 07/03/16 05:15 Total Bilirubin 0.40 mg/dL (0.2-1.0) 07/03/16 05:15 Direct Bilirubin 0.11 mg/dL (0-0.2) 07/01/16 02:50 Indirect Bilirubin 0.49 mg/dL (0.2-0.8) 07/01/16 02:50 AST 11 Units/L (15-37) L 07/03/16 05:15 ALT 9 Units/L (12-78) L 07/03/16 05:15 Alkaline Phosphatase 123 Units/L (46-116) H 07/03/16 05:15 Creatine Kinase 7 Units/L (26-192) L 06/30/16 12:55 CK-MB (CK-2) < 1.0 ng/mL (0-4.0) 06/30/16 12:55 CK/CKMB % Calc 14.3 % (<4) 06/30/16 12:55 Troponin I < 0.02 ng/mL (0-1.5) 06/30/16 12:55 Total Protein 5.3 g/dL (6.4-8.2) L 07/03/16 05:15 Albumin 1.6 g/dL (3.4-5.0) L 07/03/16 05:15 Globulin 3.7 g/dL (2.5-4.5) 07/03/16 05:15 Albumin/Globulin Ratio 0.4 Ratio (1.1-2.1) L 07/03/16 05:15 Specimen Type Catherized urine 06/30/16 13:41 Urine Color Yellow (YELLOW) 06/30/16 13:41 Urine Appearance Cloudy (CLEAR) 06/30/16 13:41 Urine pH 5.0 (5.0 - 8.0) 06/30/16 13:41 Ur Specific [place] 1.010 (1.000-1.030) 06/30/16 13:41 Urine Protein 2+ (NEGATIVE) 06/30/16 13:41 Urine Glucose (UA) Negative (NEGATIVE) 06/30/16 13:41 Urine Ketones 1+ (NEGATIVE) 06/30/16 13:41 Urine Occult Blood 4+ (NEGATIVE) 06/30/16 13:41 Urine Nitrite Positive (NEGATIVE) 06/30/16 13:41 Urine Bilirubin Negative (NEGATIVE) 06/30/16 13:41 Urine Urobilinogen 1+ (NORMAL) 06/30/16 13:41 Ur Leukocyte Esterase 3+ (NEGATIVE) 06/30/16 13:41 Urine RBC 6-10 /HPF (NEGATIVE) 06/30/16 13:41 Urine WBC 25-50 /HPF (NEGATIVE) 06/30/16 13:41 Ur Squamous Epith Cells Rare /HPF (NEGATIVE) 06/30/16 13:41 Urine Bacteria 3+ /HPF (NEGATIVE) 06/30/16 13:41 Ur Culture Indicated? Yes/culture set up 06/30/16 13:41 - Plan (1) Dehydration Status: Acute Plan: CONTINUE IV FLUIDS, MONITOR LABS. (2) Hypokalemia Status: Acute Plan: START IV FLUIDS WITH POTASSIUM, MONITOR. (3) Hypernatremia Status: Acute Plan: CHANGE IV FLUIDS TO 1/2NS, MONITOR. (4) Hypotension Status: Acute Qualifiers: Hypotension type: other hypotension type Trimester: T Qualified Code(s): I95.89 - Other hypotension Plan: CONTINUE TO MONITOR. (5) Hyperkalemia Status: Acute Plan: ABOVE. (6) Renal failure Status: Acute Plan: ABOVE. (7) UTI (urinary tract infection) Status: Acute Qualifiers: Urinary tract infection type: acute cystitis Hematuria presence: with hematuria Indwelling urinary catheter type: I Encounter type: E Qualified Code(s): N30.01 - Acute cystitis with hematuria Plan: START FORTAZ, LEVAQUIN, MONITOR. (8) CHF (congestive heart failure) Status: Chronic Qualifiers: Congestive heart failure type: combined Congestive heart failure chronicity : chronic Qualified Code(s): I50.42 - Chronic combined systolic (congestive) and diastolic (congestive) heart failure (9) Dementia Status: Chronic Qualifiers: Dementia type: vascular dementia Alzheimer's disease onset: A Dementia behavioral disturbance: without behavioral disturbance Qualified Code(s): F01.50 - Vascular dementia without behavioral disturbance (10) HTN (hypertension) Status: Chronic Qualifiers: Hypertension type: essential hypertension Qualified Code(s): I10 - Essential (primary) hypertension (11) Hypothyroidism Status: Chronic Qualifiers: Hypothyroidism type: acquired Qualified Code(s): E03.9 - Hypothyroidism, unspecified
[2016-07-03] MEDS: ELDERTONIC + WINE PO SCH (21:23)
[2016-07-03] MEDS: SNACK - Diabetic Appropriate PO SCH (21:26)
[2016-07-03] MEDS ORDERED: NS 1/2 + KCL 20 MEQ/L 1,000 ML IV ONE (21:32)
[2016-07-04] MEDS: GENTAMICIN SULF (OPHTH) AFFEYE SCH ×4 (03:30→21:28)
[2016-07-04] MEDS: ZOSYN VIAL 2.25 GM 2.25 GM in NS 100 ML IV + SPIKE MINIBAG* 100 ML IV SCH ×3 (05:12→21:31)
[2016-07-04] MEDS: NORCO 10/325 TAB PO SCH ×3 (05:12→21:31)
[2016-07-04] MEDS: NS 1/2 + KCL 20 MEQ/L 1,000 ML IV SCH ×2 (05:13→14:15)
[2016-07-04 05:29] LABS: BASOPHILS % (AUTO) 0.2 % (0.2-1.0); EOSINOPHILS % (AUTO) 0.3 % (0.9-2.9); HEMOGLOBIN 8.9 g/dL (12.0-16.0); LYMPHOCYTES % (AUTO) 9.2 % (21.0-51.0); MEAN CORPUSCULAR HEMOGLOBIN 31.4 pg (27.0-34.0); MEAN CORPUSCULAR HGB CONC 32.9 g/dL (33.0-35.0); MEAN CORPUSCULAR VOLUME 95.4 fL (80.0-100.0); MEAN PLATELET VOLUME 7.4 fL (7.4-11.0); MONOCYTES # (AUTO) 0.8 x10^3/uL (0.3-0.8); MONOCYTES % (AUTO) 6.7 % (0.0-13.0); NEUTROPHILS # (AUTO) 9.4 x10^3/uL (2.2-4.8); NEUTROPHILS % (AUTO) 83.6 % (42.0-75.0); PLATELET COUNT 248 X10^3/uL (150.0-450.0); RED BLOOD COUNT 2.83 X10^6/uL (3.5-5.4); RED CELL DISTRIBUTION WIDTH 13.1 % (11.6-16.5); WHITE BLOOD COUNT 11.3 X10^3/uL (3.6-10.0)
[2016-07-04 05:54] LABS: ALANINE AMINOTRANSFERASE 11 Units/L (12-78); ALKALINE PHOSPHATASE 111 Units/L (46-116); ASPARTATE AMINO TRANSFERASE 14 Units/L (15-37); BLOOD UREA NITROGEN 37 mg/dL (7-18); CALCIUM 7.6 mg/dL (8.5-10.1); CARBON DIOXIDE 24.4 mmol/L (21-32); COR CA(FOR HYPOALB) 9.2 mg/dL (8.5-10.1); GLUCOSE 97 mg/dL (65-99); TOTAL PROTEIN 5.6 g/dL (6.4-8.2); eGFR BLACK RACES 37 (>60); eGFR NON BLACK RACES 31 (>60)
[2016-07-04 05:56] LABS: CHLORIDE 115 mmol/L (98-107); SODIUM 151 mmol/L (136-145)
[2016-07-04 06:07] LABS: BAND NEUTROPHILS % 4 % (0-10); HYPOCHROMASIA 1+; PLATELET MORPHOLOGY COMMENT NORMAL (NORMAL)
--- NOTE | 2016-07-04 07:05 | RAD ---
HISTORY: CHF, shortness of breath Study: Single-view chest, done portably Comparison: July 03, 2016 Findings: Cardiac monitoring electrodes are noted on the chest. Trachea is midline. There is cardiomegaly with aortic uncoiling and pulmonary vascular congestion. The left lung is clear. There is a focus of maximiliano ma or infiltrate present in the right perihilar region. No pleural fluid or pneumothorax is seen. Os seous structures are intact IMPRESSION: Cardiomegaly with aortic uncoiling and pulmonary vascular congestion. There is right perihilar edema or infiltrate. Reported By:
[2016-07-04] MEDS: ZINC SULFATE PO SCH (09:19)
[2016-07-04] MEDS: SYNTHROID 100 mcg TAB PO SCH (09:20)
[2016-07-04] MEDS: ALBUMIN HUMAN 25%- 100ML 100 ML IV SCH (09:20)
[2016-07-04] MEDS: COLACE CAP 100 MG PO SCH (09:21)
[2016-07-04] MEDS: ARTIFICIAL TEARS DROPS EACHEYE SCH ×2 (09:21→21:29)
[2016-07-04] MEDS: ZOFRAN INJ 4 MG VIAL IVP PRN (09:36)
[2016-07-04] MEDS: NAPROSYN PO SCH ×2 (09:57→21:30)
[2016-07-04] MEDS ORDERED: K-LYTE EFFERVESCENT PO PRN (10:34)
[2016-07-04] MEDS ORDERED: POTASSIUM CHLORIDE LIQ 20 MEQ UDC PO PRN (10:34)
[2016-07-04] MEDS ORDERED: K-DUR TAB 20 MEQ PO PRN (10:34)
[2016-07-04] MEDS: LR IV SCH ×2 (16:53)
[2016-07-04] MEDS: POTASSIUM CHLORIDE IV SCH ×2 (16:53)
--- NOTE | 2016-07-04 19:29 | PCM.PROG ---
Progress Note - Progress Note for Day of Date: 07/04/16 - Subjective Subjective: PATIENT RESTS IN BED AND CONFUSION IS NOTED. DAUGHTER AT BEDSIDE. PATIENT IS NOTED WITH A CRITICAL POTASSIUM LEVEL OF 2.2 THIS MORNING. PATIENT' S APPETITE IS POOR. CBC WNL EXCEPT: WBC 11.3, H/H 8.9/27.0. CMP WNL EXCEPT: BUN/CREAT 37/1.70, GFR 31, CALCIUM 7.6, TOT PROTEIN 5.6, ALBUMIN 2.0. CHEST XRAY REPORTS CARDIOMEGALY WITH AORTIC UNCOILING AND PULMONARY VASCULAR CONGESTION; RIGHT PERIHILAR [place] OR INFILTRATE. WE WILL DECREASE IV FLUIDS TO 75MLS/HR. WE WILL START POTASSIUM PROTOCOL, CONTINUE CURRENT TREATMENT, AND CONTINUE TO MONITOR. WE WILL FOLLOW UP IN AM WITH ADDITIONAL LABS. - Past Medical Family Social History Past Med/Fam/Surg Hx: No changes since H&P Allergies: Allergies Codeine Allergy (Mild, Verified 06/30/16 12:48) CONFUSION Morphine Allergy (Mild, Verified 06/30/16 12:48) CONFUSION - Review of Systems ROS: No change since H&P - Vital Signs and I&O's Vital Signs: Temperature 97.9 F Pulse Rate [Left Brachial] 72 Respiratory Rate 18 Blood Pressure [Right Arm] 147/44 Blood Pressure [Left Arm] 125/43 O2 Sat by Pulse Oximetry 100 Intake and Output: Intake & Output 07/02/16 07/03/16 07/04/16 07/05/16 11:59 11:59 11:59 11:59 Intake Total 6882 4728 4396 1350 Output Total 400 1850 1600 1200 Balance 6482 2878 2796 150 - Physical Exam Oriented: Person Eyes: Normal. negative: Discharge, Redness Ear: Normal. negative: Swelling, Ecchymosis, Hemotypanum, Abrasion, Laceration Nose: Normal. negative: Injected, Discharge, Blood Throat: Dry. negative: Tonsillar Hypertrophy, Red, Exudate Respiratory: Normal Cardiovascular: Normal. negative: Murmur, Edema : Hematuria, Frequency, Discharge Auscultation: Bowel Sounds: Decreased. negative: Bruit Palpation: Normal. negative: Spleen Enlarged, Liver Enlarged, Mass Pulsatile Tenderness: Normal. negative: Rebound, Guarding, Rigidity Skin: Decreased Turgur, Wound (Right Buttock: 7 small areas of breakdown, MASD; Sacrum: [id number], MASD; Right Knee skin tear; Left upper arm skin tear; Left Lower leg skin tear) Musculoskeletal: Instability (Non-ambulatory) Psychiatric: Other (Intermittent Confusion) Mood Description: Calm, Appropriate Affect: Normal Speech Pattern: Clear, Appropriate - Laboratory and Diagnostics Result Diagrams: 07/04/16 04:45 07/04/16 14:03 Labs: Laboratory WBC 11.3 X10^3/uL (3.6-10.0) H 07/04/16 04:45 RBC 2.83 X10^6/uL (3.5-5.4) L 07/04/16 04:45 Hgb 8.9 g/dL (12.0-16.0) L 07/04/16 04:45 Hct 27.0 % (36.0-47.0) L 07/04/16 04:45 MCV 95.4 fL (80.0-100.0) 07/04/16 04:45 MCH 31.4 pg (27.0-34.0) 07/04/16 04:45 MCHC 32.9 g/dL (33.0-35.0) L 07/04/16 04:45 RDW 13.1 % (11.6-16.5) 07/04/16 04:45 Plt Count 248 X10^3/uL (150.0-450.0) 07/04/16 04:45 Plt Count Comment Adequate (ADEQUATE) 07/04/16 04:45 MPV 7.4 fL (7.4-11.0) 07/04/16 04:45 Neut % 83.6 % (42.0-75.0) H 07/04/16 04:45 Lymph % 9.2 % (21.0-51.0) L 07/04/16 04:45 [place] % 6.7 % (0.0-13.0) 07/04/16 04:45 Eos % 0.3 % (0.9-2.9) L 07/04/16 04:45 Baso % 0.2 % (0.2-1.0) 07/04/16 04:45 Neut # 9.4 x10^3/uL (2.2-4.8) H 07/04/16 04:45 Lymph # 1.0 X10^3/uL (1.3-2.9) L 07/04/16 04:45 [place] # 0.8 x10^3/uL (0.3-0.8) 07/04/16 04:45 Eos # 0.0 x10^3/uL (0.0-0.2) 07/04/16 04:45 Baso # 0.0 X10^3/uL (0.0-0.1) 07/04/16 04:45 Absolute Nucleated RBC 0.0 /100WBC 07/04/16 04:45 Total Counted 100 07/04/16 04:45 Neutrophils % (Manual) 80 % (39-76) H 07/04/16 04:45 Band Neutrophils % 4 % (0-10) 07/04/16 04:45 Lymphocytes % (Manual) 12 % (13-43) L 07/04/16 04:45 Monocytes % (Manual) 4 % (4-9) 07/04/16 04:45 Plt Morphology Comment Normal (NORMAL) 07/04/16 04:45 RBC Morphology Abnormal (NORMAL) A 07/04/16 04:45 Hypochromasia 1+ A 07/04/16 04:45 Sodium 151 mmol/L (136-145) H* 07/04/16 04:45 Corrected Sodium TNP 07/04/16 04:45 Potassium 3.1 mmol/L (3.5-5.1) L 07/04/16 14:03 Chloride 115 mmol/L (98-107) H* 07/04/16 04:45 Carbon Dioxide 24.4 mmol/L (21-32) 07/04/16 04:45 BUN 37 mg/dL (7-18) H 07/04/16 04:45 Creatinine 1.70 mg/dL (0.55-1.02) H 07/04/16 04:45 Est GFR (MDRD) Af Amer 37 (>60) L 07/04/16 04:45 Est GFR (MDRD) Non-Af 31 (>60) L 07/04/16 04:45 Glucose 97 mg/dL (65-99) 07/04/16 04:45 Calcium 7.6 mg/dL (8.5-10.1) L 07/04/16 04:45 Corrected Calcium 9.2 mg/dL (8.5-10.1) 07/04/16 04:45 Magnesium 3.1 mg/dL (1.7-2.9) H 07/03/16 05:15 Total Bilirubin 0.40 mg/dL (0.2-1.0) 07/04/16 04:45 Direct Bilirubin 0.11 mg/dL (0-0.2) 07/01/16 02:50 Indirect Bilirubin 0.49 mg/dL (0.2-0.8) 07/01/16 02:50 AST 14 Units/L (15-37) L 07/04/16 04:45 ALT 11 Units/L (12-78) L 07/04/16 04:45 Alkaline Phosphatase 111 Units/L (46-116) 07/04/16 04:45 Creatine Kinase 7 Units/L (26-192) L 06/30/16 12:55 CK-MB (CK-2) < 1.0 ng/mL (0-4.0) 06/30/16 12:55 CK/CKMB % Calc 14.3 % (<4) 06/30/16 12:55 Troponin I < 0.02 ng/mL (0-1.5) 06/30/16 12:55 Total Protein 5.6 g/dL (6.4-8.2) L 07/04/16 04:45 Albumin 2.0 g/dL (3.4-5.0) L 07/04/16 04:45 Globulin 3.6 g/dL (2.5-4.5) 07/04/16 04:45 Albumin/Globulin Ratio 0.6 Ratio (1.1-2.1) L 07/04/16 04:45 Specimen Type Catherized urine 06/30/16 13:41 Urine Color Yellow (YELLOW) 06/30/16 13:41 Urine Appearance Cloudy (CLEAR) 06/30/16 13:41 Urine pH 5.0 (5.0 - 8.0) 06/30/16 13:41 Ur Specific [place] 1.010 (1.000-1.030) 06/30/16 13:41 Urine Protein 2+ (NEGATIVE) 06/30/16 13:41 Urine Glucose (UA) Negative (NEGATIVE) 06/30/16 13:41 Urine Ketones 1+ (NEGATIVE) 06/30/16 13:41 Urine Occult Blood 4+ (NEGATIVE) 06/30/16 13:41 Urine Nitrite Positive (NEGATIVE) 06/30/16 13:41 Urine Bilirubin Negative (NEGATIVE) 06/30/16 13:41 Urine Urobilinogen 1+ (NORMAL) 06/30/16 13:41 Ur Leukocyte Esterase 3+ (NEGATIVE) 06/30/16 13:41 Urine RBC 6-10 /HPF (NEGATIVE) 06/30/16 13:41 Urine WBC 25-50 /HPF (NEGATIVE) 06/30/16 13:41 Ur Squamous Epith Cells Rare /HPF (NEGATIVE) 06/30/16 13:41 Urine Bacteria 3+ /HPF (NEGATIVE) 06/30/16 13:41 Ur Culture Indicated? Yes/culture set up 06/30/16 13:41 - Plan (1) Dehydration Status: Acute Plan: CONTINUE IV FLUIDS, MONITOR LABS. (2) E. coli UTI Status: Acute Plan: CONTINUE ZOSYN IV, MONITOR. (3) Hypokalemia Status: Acute Plan: START POTASSIUM PROTOCOL, CONTINUE IV FLUIDS WITH POTASSIUM, MONITOR. (4) Hypernatremia Status: Acute Plan: CONTINUE IV FLUIDS 1/2NS, MONITOR LABS. (5) Hypotension Status: Acute Qualifiers: Hypotension type: other hypotension type Trimester: T Qualified Code(s): I95.89 - Other hypotension Plan: CONTINUE TO MONITOR. (6) Hyperkalemia Status: Acute Plan: ABOVE. (7) Renal failure Status: Acute Plan: ABOVE. (8) UTI (urinary tract infection) Status: Acute Qualifiers: Urinary tract infection type: acute cystitis Hematuria presence: with hematuria Indwelling urinary catheter type: I Encounter type: E Qualified Code(s): N30.01 - Acute cystitis with hematuria Plan: START FORTAZ, LEVAQUIN, MONITOR. (9) CHF (congestive heart failure) Status: Chronic Qualifiers: Congestive heart failure type: combined Congestive heart failure chronicity : chronic Qualified Code(s): I50.42 - Chronic combined systolic (congestive) and diastolic (congestive) heart failure (10) Dementia Status: Chronic Qualifiers: Dementia type: vascular dementia Alzheimer's disease onset: A Dementia behavioral disturbance: without behavioral disturbance Qualified Code(s): F01.50 - Vascular dementia without behavioral disturbance (11) HTN (hypertension) Status: Chronic Qualifiers: Hypertension type: essential hypertension Qualified Code(s): I10 - Essential (primary) hypertension (12) Hypothyroidism Status: Chronic Qualifiers: Hypothyroidism type: acquired Qualified Code(s): E03.9 - Hypothyroidism, unspecified
[2016-07-04] MEDS: SNACK - Diabetic Appropriate PO SCH (21:05)
[2016-07-04] MEDS: ELDERTONIC + WINE PO SCH ×2 (21:30→21:52)
[2016-07-05] MEDS: GENTAMICIN SULF (OPHTH) AFFEYE SCH ×5 (02:53→22:14)
[2016-07-05] MEDS: LR IV SCH ×8 (04:50→18:12)
[2016-07-05] MEDS: POTASSIUM CHLORIDE IV SCH ×8 (04:50→18:12)
[2016-07-05] MEDS: ZOSYN VIAL 2.25 GM 2.25 GM in NS 100 ML IV + SPIKE MINIBAG* 100 ML IV SCH ×3 (05:55→22:16)
[2016-07-05] MEDS: NORCO 10/325 TAB PO SCH ×3 (05:55→22:14)
[2016-07-05 06:48] LABS: ALANINE AMINOTRANSFERASE 11 Units/L (12-78); ALBUMIN 2.3 g/dL (3.4-5.0); ALKALINE PHOSPHATASE 103 Units/L (46-116); ASPARTATE AMINO TRANSFERASE 24 Units/L (15-37); BLOOD UREA NITROGEN 29 mg/dL (7-18); CALCIUM 7.7 mg/dL (8.5-10.1); CARBON DIOXIDE 24.3 mmol/L (21-32); COR CA(FOR HYPOALB) 9.1 mg/dL (8.5-10.1); CREATININE 1.47 mg/dL (0.55-1.02); GLUCOSE 86 mg/dL (65-99); TOTAL PROTEIN 5.4 g/dL (6.4-8.2); eGFR BLACK RACES 44 (>60); eGFR NON BLACK RACES 36 (>60)
[2016-07-05 06:54] LABS: SODIUM 150 mmol/L (136-145)
[2016-07-05 06:55] LABS: CHLORIDE 115 mmol/L (98-107)
[2016-07-05 07:15] LABS: BASOPHILS # (AUTO) 0.1 X10^3/uL (0.0-0.1); BASOPHILS % (AUTO) 0.5 % (0.2-1.0); EOSINOPHILS # (AUTO) 0.2 x10^3/uL (0.0-0.2); EOSINOPHILS % (AUTO) 1.3 % (0.9-2.9); HEMATOCRIT 27.6 % (36.0-47.0); HEMOGLOBIN 8.9 g/dL (12.0-16.0); LYMPHOCYTES # (AUTO) 1.1 X10^3/uL (1.3-2.9); LYMPHOCYTES % (AUTO) 9.6 % (21.0-51.0); MEAN CORPUSCULAR HEMOGLOBIN 30.4 pg (27.0-34.0); MEAN CORPUSCULAR HGB CONC 32.3 g/dL (33.0-35.0); MEAN CORPUSCULAR VOLUME 94.4 fL (80.0-100.0); MEAN PLATELET VOLUME 7.4 fL (7.4-11.0); MONOCYTES # (AUTO) 0.8 x10^3/uL (0.3-0.8); MONOCYTES % (AUTO) 7.1 % (0.0-13.0); NEUTROPHILS # (AUTO) 9.4 x10^3/uL (2.2-4.8); NEUTROPHILS % (AUTO) 81.5 % (42.0-75.0); PLATELET COUNT 226 X10^3/uL (150.0-450.0); RED BLOOD COUNT 2.93 X10^6/uL (3.5-5.4); RED CELL DISTRIBUTION WIDTH 13.1 % (11.6-16.5); WHITE BLOOD COUNT 11.5 X10^3/uL (3.6-10.0)
[2016-07-05 07:56] LABS: BAND NEUTROPHILS % 6 % (0-10); PLATELET MORPHOLOGY COMMENT NORMAL (NORMAL)
--- NOTE | 2016-07-05 08:38 | RAD ---
Chest, one view Indication: CHF, shortness of breath. Comparison: 07/04/2016 Findings: Cardiomegaly is unchanged. There is increased prominence of the right perihilar opacity, l ikely related to patient rotation. There is no evidence for overt edema. No large effusion or pneumo thorax identified. Impression: Right perihilar infiltrate is not significantly changed, accounting for differences in p atient positioning. Stable cardiomegaly without overt edema. Reported By:
[2016-07-05] MEDS: ALBUMIN HUMAN 25%- 100ML 100 ML IV SCH (09:40)
[2016-07-05] MEDS: ARTIFICIAL TEARS DROPS EACHEYE SCH ×2 (09:40→22:16)
[2016-07-05] MEDS: COLACE CAP 100 MG PO SCH (09:41)
[2016-07-05] MEDS: NAPROSYN PO SCH ×2 (09:41→22:14)
[2016-07-05] MEDS: ZINC SULFATE PO SCH (09:41)
[2016-07-05] MEDS: PEPCID TAB 20 MG PO SCH (09:41)
[2016-07-05] MEDS: ZOFRAN INJ 4 MG VIAL IVP PRN (09:41)
[2016-07-05] MEDS: SYNTHROID 100 mcg TAB PO SCH (09:41)
[2016-07-05] MEDS: MEGACE PO SCH ×2 (09:55→22:14)
[2016-07-05] MEDS ORDERED: PROCALAMINE 3 % 1,000 ML IV SCH (10:00)
[2016-07-05] MEDS: CLINIMIX 4.25 %/10 % 1,000 ML with MVI INJ (ADULT) 10 ML, TRACE ELEMENTS INJ 10 ML, TPN... IV SCH ×5 (12:00)
[2016-07-05] MEDS: SNACK - Diabetic Appropriate PO SCH (20:16)
[2016-07-05] MEDS: ELDERTONIC + WINE PO SCH ×2 (23:38→23:39)
[2016-07-06] MEDS: GENTAMICIN SULF (OPHTH) AFFEYE SCH ×4 (02:27→21:07)
[2016-07-06] MEDS: NORCO 10/325 TAB PO SCH ×3 (06:02→21:09)
[2016-07-06] MEDS: ZOSYN VIAL 2.25 GM 2.25 GM in NS 100 ML IV + SPIKE MINIBAG* 100 ML IV SCH ×3 (06:02→21:09)
[2016-07-06 06:16] LABS: BASOPHILS # (AUTO) 0.1 X10^3/uL (0.0-0.1); BASOPHILS % (AUTO) 0.4 % (0.2-1.0); EOSINOPHILS # (AUTO) 0.2 x10^3/uL (0.0-0.2); EOSINOPHILS % (AUTO) 1.9 % (0.9-2.9); HEMATOCRIT 27.8 % (36.0-47.0); HEMOGLOBIN 9.1 g/dL (12.0-16.0); LYMPHOCYTES # (AUTO) 1.8 X10^3/uL (1.3-2.9); LYMPHOCYTES % (AUTO) 15.2 % (21.0-51.0); MEAN CORPUSCULAR HEMOGLOBIN 31.3 pg (27.0-34.0); MEAN CORPUSCULAR HGB CONC 32.8 g/dL (33.0-35.0); MEAN CORPUSCULAR VOLUME 95.5 fL (80.0-100.0); MEAN PLATELET VOLUME 7.8 fL (7.4-11.0); MONOCYTES % (AUTO) 8.3 % (0.0-13.0); NEUTROPHILS # (AUTO) 8.7 x10^3/uL (2.2-4.8); NEUTROPHILS % (AUTO) 74.2 % (42.0-75.0); PLATELET COUNT 198 X10^3/uL (150.0-450.0); RED BLOOD COUNT 2.91 X10^6/uL (3.5-5.4); RED CELL DISTRIBUTION WIDTH 13.5 % (11.6-16.5); WHITE BLOOD COUNT 11.7 X10^3/uL (3.6-10.0)
[2016-07-06 07:19] LABS: ALBUMIN 2.6 g/dL (3.4-5.0); CALCIUM 7.9 mg/dL (8.5-10.1); CARBON DIOXIDE 28.6 mmol/L (21-32); CREATININE 1.32 mg/dL (0.55-1.02); TOTAL PROTEIN 5.9 g/dL (6.4-8.2)
--- NOTE | 2016-07-06 07:59 | RAD ---
Chest, one view Indication: CHF Comparison: 07/05/2016 Findings: There is a stable right perihilar opacity. There is stable mild cardiomegaly without evide nce for overt edema. The left lung is essentially clear. No large effusion or pneumothorax. Impression: Stable right perihilar opacity and cardiomegaly. No new abnormality. Reported By:
[2016-07-06] MEDS: MEGACE PO SCH ×2 (08:29→21:10)
[2016-07-06] MEDS: NAPROSYN PO SCH ×2 (08:29→21:07)
[2016-07-06] MEDS: COLACE CAP 100 MG PO SCH (08:29)
[2016-07-06] MEDS: ZINC SULFATE PO SCH (08:29)
[2016-07-06] MEDS: SYNTHROID 100 mcg TAB PO SCH (08:29)
[2016-07-06 08:30] LABS: BAND NEUTROPHILS % 1 % (0-10); PLATELET MORPHOLOGY COMMENT NORMAL (NORMAL)
[2016-07-06] MEDS: ALBUMIN HUMAN 25%- 100ML 100 ML IV SCH (08:30)
[2016-07-06] MEDS: ARTIFICIAL TEARS DROPS EACHEYE SCH ×2 (09:18→21:05)
[2016-07-06] MEDS: LR IV SCH ×4 (14:37→21:04)
[2016-07-06] MEDS: CLINIMIX 4.25 %/10 % 1,000 ML with MVI INJ (ADULT) 10 ML, TRACE ELEMENTS INJ 10 ML, TPN... IV SCH ×5 (14:37)
[2016-07-06] MEDS: POTASSIUM CHLORIDE IV SCH ×4 (14:37→21:04)
[2016-07-06] MEDS: DURAGESIC 75 mcg/HR PATCH TD SCH (14:39)
--- NOTE | 2016-07-06 20:32 | PCM.PROG ---
Progress Note - Progress Note for Day of Date: 07/05/16 - Subjective Subjective: PATIENT CONTINUES ON IV FLUIDS FOR DEHYDRATION AND CONTINUES ON IV ZOSYN FOR E-COLI UTI. DAUGHTER AT BEDSIDE. PATIENT HAS A RIGHT BUTTOCK WOUND AND REPORTS PAIN TO BUTTOCKS AND SACRAL AREA THIS MORNING. WOUND CARE CONTINUES. PATIENT CONTINUES WITH LOW POTASSIUM LEVEL OF 3.4 THIS MORNING DESPITE SUPPLEMENTING WITH POTASSIUM PROTOCOL AND IV FLUIDS WITH 60MEQ OF POTASSIUM. PATIENT'S APPETITE CONTINUES TO BE POOR. CBC WNL EXCEPT: WBC 11.3, H/H 8.9/27.0. CMP WNL EXCEPT: SODIUM 150, POTASSIUM 3.4, CHL 115, BUN/CREAT 29/ 1.47, GFR 36, CALCIUM 7.7, TOT PROTEIN 5.4, ALBUMIN 2.3. CHEST XRAY REPORTS RIGHT PERIHILAR INFILTRATE IS NOT SIGNIFICANTLY CHANGED; STABLE CARDIMEGALY WITHOUT OVERT EDEMA. WE WILL START PROCALAMINE, MEGACE, CONTINUE POTASSIUM PROTOCOL, IV FLUIDS WITH POTASSIUM, AND CONTINUE TO MONITOR. WE WILL FOLLOW UP IN AM WITH ADDITIONAL LABS. - Past Medical Family Social History Past Med/Fam/Surg Hx: No changes since H&P Allergies: Allergies Codeine Allergy (Mild, Verified 06/30/16 12:48) CONFUSION Morphine Allergy (Mild, Verified 06/30/16 12:48) CONFUSION - Review of Systems ROS: No change since H&P - Vital Signs and I&O's Vital Signs: Temperature 97.5 F Pulse Rate [Left Brachial] 59 Respiratory Rate 24 Blood Pressure [Right Arm] 147/44 Blood Pressure [Left Arm] 144/55 O2 Sat by Pulse Oximetry 100 Intake and Output: Intake & Output 07/04/16 07/05/16 07/06/16 07/07/16 11:59 11:59 11:59 11:59 Intake Total 4396 1955 2924 980 Output Total 1600 1580 1550 800 Balance 2796 375 1374 180 - Physical Exam Oriented: Person Eyes: Normal. negative: Discharge, Redness Ear: Normal. negative: Swelling, Ecchymosis, Hemotypanum, Abrasion, Laceration Nose: Normal. negative: Injected, Discharge, Blood Throat: Dry. negative: Tonsillar Hypertrophy, Red, Exudate Respiratory: Normal Cardiovascular: Normal. negative: Murmur, Edema : Hematuria, Frequency, Discharge Auscultation: Bowel Sounds: Decreased. negative: Bruit Tenderness: Normal. negative: Rebound, Guarding, Rigidity Skin: Decreased Turgur, Wound (Right Buttock: 7 small areas of breakdown, MASD; Sacrum: 7xqq4few2.3cm, MASD; Right Knee skin tear; Left upper arm skin tear; Left Lower leg skin tear) Musculoskeletal: Instability (Non-ambulatory) Psychiatric: Other (Intermittent Confusion) Mood Description: Calm, Appropriate Affect: Normal Speech Pattern: Clear, Appropriate - Laboratory and Diagnostics Result Diagrams: 07/06/16 05:30 07/06/16 05:30 Labs: 07/05/16 00:51 Vaginal Gram Stain - Final 07/05/16 00:51 Vaginal Wound Culture - Preliminary Laboratory WBC 11.7 X10^3/uL (3.6-10.0) H 07/06/16 05:30 RBC 2.91 X10^6/uL (3.5-5.4) L 07/06/16 05:30 Hgb 9.1 g/dL (12.0-16.0) L 07/06/16 05:30 Hct 27.8 % (36.0-47.0) L 07/06/16 05:30 MCV 95.5 fL (80.0-100.0) 07/06/16 05:30 MCH 31.3 pg (27.0-34.0) 07/06/16 05:30 MCHC 32.8 g/dL (33.0-35.0) L 07/06/16 05:30 RDW 13.5 % (11.6-16.5) 07/06/16 05:30 Plt Count 198 X10^3/uL (150.0-450.0) 07/06/16 05:30 Plt Count Comment Adequate (ADEQUATE) 07/06/16 05:30 MPV 7.8 fL (7.4-11.0) 07/06/16 05:30 Neut % 74.2 % (42.0-75.0) 07/06/16 05:30 Lymph % 15.2 % (21.0-51.0) L 07/06/16 05:30 [place] % 8.3 % (0.0-13.0) 07/06/16 05:30 Eos % 1.9 % (0.9-2.9) 07/06/16 05:30 Baso % 0.4 % (0.2-1.0) 07/06/16 05:30 Neut # 8.7 x10^3/uL (2.2-4.8) H 07/06/16 05:30 Lymph # 1.8 X10^3/uL (1.3-2.9) 07/06/16 05:30 [place] # 1.0 x10^3/uL (0.3-0.8) H 07/06/16 05:30 Eos # 0.2 x10^3/uL (0.0-0.2) 07/06/16 05:30 Baso # 0.1 X10^3/uL (0.0-0.1) 07/06/16 05:30 Absolute Nucleated RBC 0.0 /100WBC 07/06/16 05:30 Total Counted 100 07/06/16 05:30 Neutrophils % (Manual) 75 % (39-76) 07/06/16 05:30 Band Neutrophils % 1 % (0-10) 07/06/16 05:30 Lymphocytes % (Manual) 18 % (13-43) 07/06/16 05:30 Monocytes % (Manual) 5 % (4-9) 07/06/16 05:30 Eosinophils % (Manual) 1 % (0-6) 07/06/16 05:30 Plt Morphology Comment Normal (NORMAL) 07/06/16 05:30 RBC Morphology Normal (NORMAL) 07/06/16 05:30 Hypochromasia 1+ A 07/04/16 04:45 Sodium 150 mmol/L (136-145) H* 07/06/16 05:30 Corrected Sodium 150 mmol/L (136-145) H 07/06/16 05:30 Potassium 3.8 mmol/L (3.5-5.1) 07/06/16 05:30 Chloride 114 mmol/L (98-107) H 07/06/16 05:30 Carbon Dioxide 28.6 mmol/L (21-32) 07/06/16 05:30 BUN 27 mg/dL (7-18) H 07/06/16 05:30 Creatinine 1.32 mg/dL (0.55-1.02) H 07/06/16 05:30 Est GFR (MDRD) Af Amer 49 (>60) L 07/06/16 05:30 Est GFR (MDRD) Non-Af 41 (>60) L 07/06/16 05:30 Glucose 119 mg/dL (65-99) H 07/06/16 05:30 Calcium 7.9 mg/dL (8.5-10.1) L 07/06/16 05:30 Corrected Calcium 9.0 mg/dL (8.5-10.1) 07/06/16 05:30 Magnesium 2.3 mg/dL (1.7-2.9) 07/05/16 03:10 Total Bilirubin 0.60 mg/dL (0.2-1.0) 07/06/16 05:30 Direct Bilirubin 0.11 mg/dL (0-0.2) 07/01/16 02:50 Indirect Bilirubin 0.49 mg/dL (0.2-0.8) 07/01/16 02:50 AST 11 Units/L (15-37) L 07/06/16 05:30 ALT 14 Units/L (12-78) 07/06/16 05:30 Alkaline Phosphatase 84 Units/L (46-116) 07/06/16 05:30 Creatine Kinase 7 Units/L (26-192) L 06/30/16 12:55 CK-MB (CK-2) < 1.0 ng/mL (0-4.0) 06/30/16 12:55 CK/CKMB % Calc 14.3 % (<4) 06/30/16 12:55 Troponin I < 0.02 ng/mL (0-1.5) 06/30/16 12:55 Total Protein 5.9 g/dL (6.4-8.2) L 07/06/16 05:30 Albumin 2.6 g/dL (3.4-5.0) L 07/06/16 05:30 Globulin 3.3 g/dL (2.5-4.5) 07/06/16 05:30 Albumin/Globulin Ratio 0.8 Ratio (1.1-2.1) L 07/06/16 05:30 Specimen Type Catherized urine 06/30/16 13:41 Urine Color Yellow (YELLOW) 06/30/16 13:41 Urine Appearance Cloudy (CLEAR) 06/30/16 13:41 Urine pH 5.0 (5.0 - 8.0) 06/30/16 13:41 Ur Specific [place] 1.010 (1.000-1.030) 06/30/16 13:41 Urine Protein 2+ (NEGATIVE) 06/30/16 13:41 Urine Glucose (UA) Negative (NEGATIVE) 06/30/16 13:41 Urine Ketones 1+ (NEGATIVE) 06/30/16 13:41 Urine Occult Blood 4+ (NEGATIVE) 06/30/16 13:41 Urine Nitrite Positive (NEGATIVE) 06/30/16 13:41 Urine Bilirubin Negative (NEGATIVE) 06/30/16 13:41 Urine Urobilinogen 1+ (NORMAL) 06/30/16 13:41 Ur Leukocyte Esterase 3+ (NEGATIVE) 06/30/16 13:41 Urine RBC 6-10 /HPF (NEGATIVE) 06/30/16 13:41 Urine WBC 25-50 /HPF (NEGATIVE) 06/30/16 13:41 Ur Squamous Epith Cells Rare /HPF (NEGATIVE) 06/30/16 13:41 Urine Bacteria 3+ /HPF (NEGATIVE) 06/30/16 13:41 Ur Culture Indicated? Yes/culture set up 06/30/16 13:41 - Plan (1) Dehydration Status: Acute Plan: CONTINUE IV FLUIDS, MONITOR LABS. (2) E. coli UTI Status: Acute Plan: CONTINUE ZOSYN IV, MONITOR. (3) Hypokalemia Status: Acute Plan: CONTINUE POTASSIUM PROTOCOL, IV FLUIDS WITH POTASSIUM, MONITOR. (4) Sacral decubitus ulcer Status: Acute Qualifiers: Pressure ulcer stage: P Plan: CONTINUE WOUND CARE, MONITOR. (5) Hypernatremia Status: Acute Plan: CONTINUE IV FLUIDS 1/2NS, MONITOR LABS. (6) Hypotension Status: Acute Qualifiers: Hypotension type: other hypotension type Trimester: T Qualified Code(s): I95.89 - Other hypotension Plan: CONTINUE TO MONITOR. (7) Hyperkalemia Status: Acute Plan: ABOVE. (8) Renal failure Status: Acute Plan: ABOVE. (9) UTI (urinary tract infection) Status: Acute Qualifiers: Urinary tract infection type: acute cystitis Hematuria presence: with hematuria Indwelling urinary catheter type: I Encounter type: E Qualified Code(s): N30.01 - Acute cystitis with hematuria Plan: CONTINUE FORTAZ, LEVAQUIN, MONITOR. (10) CHF (congestive heart failure) Status: Chronic Qualifiers: Congestive heart failure type: combined Congestive heart failure chronicity : chronic Qualified Code(s): I50.42 - Chronic combined systolic (congestive) and diastolic (congestive) heart failure (11) Dementia Status: Chronic Qualifiers: Dementia type: vascular dementia Alzheimer's disease onset: A Dementia behavioral disturbance: without behavioral disturbance Qualified Code(s): F01.50 - Vascular dementia without behavioral disturbance (12) HTN (hypertension) Status: Chronic Qualifiers: Hypertension type: essential hypertension Qualified Code(s): I10 - Essential (primary) hypertension (13) Hypothyroidism Status: Ruled-out Qualifiers: Hypothyroidism type: acquired Qualified Code(s): E03.9 - Hypothyroidism, unspecified
[2016-07-06] MEDS: SNACK - Diabetic Appropriate PO SCH (21:05)
[2016-07-06] MEDS: ELDERTONIC + WINE PO SCH (21:06)
[2016-07-07] MEDS: GENTAMICIN SULF (OPHTH) AFFEYE SCH ×4 (02:37→21:22)
[2016-07-07] MEDS: ZOSYN VIAL 2.25 GM 2.25 GM in NS 100 ML IV + SPIKE MINIBAG* 100 ML IV SCH ×3 (05:01→21:24)
[2016-07-07] MEDS: NORCO 10/325 TAB PO SCH ×3 (05:02→21:22)
[2016-07-07 06:29] LABS: BASOPHILS % (AUTO) 0.2 % (0.2-1.0); EOSINOPHILS # (AUTO) 0.3 x10^3/uL (0.0-0.2); EOSINOPHILS % (AUTO) 3.2 % (0.9-2.9); HEMATOCRIT 25.5 % (36.0-47.0); HEMOGLOBIN 8.4 g/dL (12.0-16.0); LYMPHOCYTES # (AUTO) 1.1 X10^3/uL (1.3-2.9); LYMPHOCYTES % (AUTO) 10.8 % (21.0-51.0); MEAN CORPUSCULAR HEMOGLOBIN 31.3 pg (27.0-34.0); MEAN CORPUSCULAR HGB CONC 32.8 g/dL (33.0-35.0); MEAN CORPUSCULAR VOLUME 95.3 fL (80.0-100.0); MEAN PLATELET VOLUME 7.9 fL (7.4-11.0); MONOCYTES # (AUTO) 0.8 x10^3/uL (0.3-0.8); MONOCYTES % (AUTO) 7.5 % (0.0-13.0); NEUTROPHILS # (AUTO) 8.2 x10^3/uL (2.2-4.8); NEUTROPHILS % (AUTO) 78.3 % (42.0-75.0); PLATELET COUNT 163 X10^3/uL (150.0-450.0); RED BLOOD COUNT 2.68 X10^6/uL (3.5-5.4); RED CELL DISTRIBUTION WIDTH 13.6 % (11.6-16.5); WHITE BLOOD COUNT 10.5 X10^3/uL (3.6-10.0)
[2016-07-07 06:39] LABS: ALANINE AMINOTRANSFERASE 12 Units/L (12-78); ALBUMIN 2.5 g/dL (3.4-5.0); ALKALINE PHOSPHATASE 73 Units/L (46-116); ASPARTATE AMINO TRANSFERASE 14 Units/L (15-37); BLOOD UREA NITROGEN 27 mg/dL (7-18); CALCIUM 8.1 mg/dL (8.5-10.1); CARBON DIOXIDE 27.4 mmol/L (21-32); CHLORIDE 113 mmol/L (98-107); COR CA(FOR HYPOALB) 9.3 mg/dL (8.5-10.1); CREATININE 1.22 mg/dL (0.55-1.02); GLUCOSE 110 mg/dL (65-99); SODIUM 149 mmol/L (136-145); TOTAL PROTEIN 5.5 g/dL (6.4-8.2); eGFR BLACK RACES 54 (>60); eGFR NON BLACK RACES 45 (>60)
--- NOTE | 2016-07-07 06:59 | RAD ---
Chest, one view Indication: CHF Comparison: 07/06/2016 Findings: Portion of the upper chest is obscured. The cardiac silhouette size and right perihilar op acity are unchanged. There are low lung volumes without evidence for overt edema, large effusion, or significant pneumothorax. Impression: No significant change from prior. Reported By:
[2016-07-07 07:24] LABS: BAND NEUTROPHILS % 5 % (0-10); PLATELET MORPHOLOGY COMMENT NORMAL (NORMAL)
[2016-07-07] MEDS: ARTIFICIAL TEARS DROPS EACHEYE SCH ×2 (08:44→21:21)
[2016-07-07] MEDS: COLACE CAP 100 MG PO SCH (08:45)
[2016-07-07] MEDS: NAPROSYN PO SCH ×2 (08:46→21:23)
[2016-07-07] MEDS: PEPCID TAB 20 MG PO SCH (08:46)
[2016-07-07] MEDS: MEGACE PO SCH ×2 (08:46→21:23)
[2016-07-07] MEDS: ZINC SULFATE PO SCH (08:46)
[2016-07-07] MEDS: SYNTHROID 100 mcg TAB PO SCH (08:46)
[2016-07-07] MEDS: ALBUMIN HUMAN 25%- 100ML 100 ML IV SCH (10:14)
[2016-07-07] MEDS: LR IV SCH ×4 (10:14→21:23)
[2016-07-07] MEDS: POTASSIUM CHLORIDE IV SCH ×4 (10:14→21:23)
[2016-07-07] MEDS ORDERED: HUMULIN R SUBCUT PRN (11:18)
[2016-07-07] MEDS: CLINIMIX 4.25 %/10 % 1,000 ML with MVI INJ (ADULT) 10 ML, TRACE ELEMENTS INJ 10 ML, TPN... IV SCH ×5 (14:13)
--- NOTE | 2016-07-07 16:22 | PCM.PROG ---
Progress Note - Progress Note for Day of Date: 07/06/16 - Subjective Subjective: PATIENT CONTINUES ON IV FLUIDS FOR DEHYDRATION AND CONTINUES ON IV ZOSYN FOR E-COLI UTI. NO FAMILY PRESENT. WOUND CARE CONTINUES TO SACRUM. PATIENT WAS STARTED ON PERIPHERAL TPN DUE TO VERY POOR NUTRITION. POTASSIUM LEVEL IS WNL. CBC WNL EXCEPT: WBC 11.7, H/H 9.1/27.8. CMP WNL EXCEPT: SODIUM 150, CHL 114, BUN/CREAT 27/1.32, GFR 41, CALCIUM 7.9, TOT PROTEIN 5.9, ALBUMIN 2.6. CHEST XRAY REPORTS RIGHT PERIHILAR OPACITY. WE WILL CONTINUE PROCALAMINE , MEGACE, IV FLUIDS WITH POTASSIUM, AND CONTINUE TO MONITOR. WE WILL FOLLOW UP IN AM WITH ADDITIONAL LABS. - Past Medical Family Social History Past Med/Fam/Surg Hx: No changes since H&P Allergies: Allergies Codeine Allergy (Mild, Verified 06/30/16 12:48) CONFUSION Morphine Allergy (Mild, Verified 06/30/16 12:48) CONFUSION - Review of Systems ROS: No change since H&P - Vital Signs and I&O's Vital Signs: Temperature 98.1 F Pulse Rate [Left Brachial] 60 Pulse Rate 61 Respiratory Rate 18 Blood Pressure [Right Arm] 147/44 Blood Pressure [Left Arm] 109/38 O2 Sat by Pulse Oximetry 100 Intake and Output: Intake & Output 07/05/16 07/06/16 07/07/16 07/08/16 11:59 11:59 11:59 11:59 Intake Total 1955 2924 3156 950 Output Total 1580 1550 1250 1200 Balance 375 1374 1906 -250 - Physical Exam Oriented: Person Eyes: Normal. negative: Discharge, Redness Ear: Normal. negative: Swelling, Ecchymosis, Hemotypanum, Abrasion, Laceration Nose: Normal. negative: Injected, Discharge, Blood Throat: Dry. negative: Tonsillar Hypertrophy, Red, Exudate Respiratory: Normal Cardiovascular: Normal. negative: Murmur, Edema : Hematuria, Frequency, Discharge Auscultation: Bowel Sounds: Decreased. negative: Bruit Palpation: Normal. negative: Spleen Enlarged, Liver Enlarged, Mass Pulsatile Tenderness: Normal. negative: Rebound, Guarding, Rigidity Skin: Decreased Turgur, Wound (Right Buttock: 7 small areas of breakdown, MASD; Sacrum: 3gkl7vcz7.3cm, MASD; Right Knee skin tear; Left upper arm skin tear; Left Lower leg skin tear) Musculoskeletal: Instability (Non-ambulatory) Psychiatric: Other (Intermittent Confusion) Mood Description: Calm, Appropriate Affect: Normal Speech Pattern: Clear, Appropriate - Laboratory and Diagnostics Result Diagrams: 07/07/16 05:25 07/07/16 05:25 Labs: 07/05/16 00:51 Vaginal Gram Stain - Final 07/05/16 00:51 Vaginal Wound Culture - Preliminary Laboratory WBC 10.5 X10^3/uL (3.6-10.0) H 07/07/16 05:25 RBC 2.68 X10^6/uL (3.5-5.4) L 07/07/16 05:25 Hgb 8.4 g/dL (12.0-16.0) L 07/07/16 05:25 Hct 25.5 % (36.0-47.0) L 07/07/16 05:25 MCV 95.3 fL (80.0-100.0) 07/07/16 05:25 MCH 31.3 pg (27.0-34.0) 07/07/16 05:25 MCHC 32.8 g/dL (33.0-35.0) L 07/07/16 05:25 RDW 13.6 % (11.6-16.5) 07/07/16 05:25 Plt Count 163 X10^3/uL (150.0-450.0) 07/07/16 05:25 Plt Count Comment Adequate (ADEQUATE) 07/07/16 05:25 MPV 7.9 fL (7.4-11.0) 07/07/16 05:25 Neut % 78.3 % (42.0-75.0) H 07/07/16 05:25 Lymph % 10.8 % (21.0-51.0) L 07/07/16 05:25 [place] % 7.5 % (0.0-13.0) 07/07/16 05:25 Eos % 3.2 % (0.9-2.9) H 07/07/16 05:25 Baso % 0.2 % (0.2-1.0) 07/07/16 05:25 Neut # 8.2 x10^3/uL (2.2-4.8) H 07/07/16 05:25 Lymph # 1.1 X10^3/uL (1.3-2.9) L 07/07/16 05:25 [place] # 0.8 x10^3/uL (0.3-0.8) 07/07/16 05:25 Eos # 0.3 x10^3/uL (0.0-0.2) H 07/07/16 05:25 Baso # 0.0 X10^3/uL (0.0-0.1) 07/07/16 05:25 Absolute Nucleated RBC 0.1 /100WBC 07/07/16 05:25 Total Counted 100 07/07/16 05:25 Neutrophils % (Manual) 78 % (39-76) H 07/07/16 05:25 Band Neutrophils % 5 % (0-10) 07/07/16 05:25 Lymphocytes % (Manual) 12 % (13-43) L 07/07/16 05:25 Monocytes % (Manual) 2 % (4-9) L 07/07/16 05:25 Eosinophils % (Manual) 3 % (0-6) 07/07/16 05:25 Plt Morphology Comment Normal (NORMAL) 07/07/16 05:25 RBC Morphology Normal (NORMAL) 07/07/16 05:25 Hypochromasia 1+ A 07/04/16 04:45 Sodium 149 mmol/L (136-145) H 07/07/16 05:25 Corrected Sodium TNP 07/07/16 05:25 Potassium 4.1 mmol/L (3.5-5.1) 07/07/16 05:25 Chloride 113 mmol/L (98-107) H 07/07/16 05:25 Carbon Dioxide 27.4 mmol/L (21-32) 07/07/16 05:25 BUN 27 mg/dL (7-18) H 07/07/16 05:25 Creatinine 1.22 mg/dL (0.55-1.02) H 07/07/16 05:25 Est GFR (MDRD) Af Amer 54 (>60) L 07/07/16 05:25 Est GFR (MDRD) Non-Af 45 (>60) L 07/07/16 05:25 Glucose 110 mg/dL (65-99) H 07/07/16 05:25 Calcium 8.1 mg/dL (8.5-10.1) L 07/07/16 05:25 Corrected Calcium 9.3 mg/dL (8.5-10.1) 07/07/16 05:25 Magnesium 2.3 mg/dL (1.7-2.9) 07/05/16 03:10 Total Bilirubin 0.60 mg/dL (0.2-1.0) 07/07/16 05:25 Direct Bilirubin 0.11 mg/dL (0-0.2) 07/01/16 02:50 Indirect Bilirubin 0.49 mg/dL (0.2-0.8) 07/01/16 02:50 AST 14 Units/L (15-37) L 07/07/16 05:25 ALT 12 Units/L (12-78) 07/07/16 05:25 Alkaline Phosphatase 73 Units/L (46-116) 07/07/16 05:25 Creatine Kinase 7 Units/L (26-192) L 06/30/16 12:55 CK-MB (CK-2) < 1.0 ng/mL (0-4.0) 06/30/16 12:55 CK/CKMB % Calc 14.3 % (<4) 06/30/16 12:55 Troponin I < 0.02 ng/mL (0-1.5) 06/30/16 12:55 Total Protein 5.5 g/dL (6.4-8.2) L 07/07/16 05:25 Albumin 2.5 g/dL (3.4-5.0) L 07/07/16 05:25 Globulin 3.0 g/dL (2.5-4.5) 07/07/16 05:25 Albumin/Globulin Ratio 0.8 Ratio (1.1-2.1) L 07/07/16 05:25 Specimen Type Catherized urine 06/30/16 13:41 Urine Color Yellow (YELLOW) 06/30/16 13:41 Urine Appearance Cloudy (CLEAR) 06/30/16 13:41 Urine pH 5.0 (5.0 - 8.0) 06/30/16 13:41 Ur Specific [place] 1.010 (1.000-1.030) 06/30/16 13:41 Urine Protein 2+ (NEGATIVE) 06/30/16 13:41 Urine Glucose (UA) Negative (NEGATIVE) 06/30/16 13:41 Urine Ketones 1+ (NEGATIVE) 06/30/16 13:41 Urine Occult Blood 4+ (NEGATIVE) 06/30/16 13:41 Urine Nitrite Positive (NEGATIVE) 06/30/16 13:41 Urine Bilirubin Negative (NEGATIVE) 06/30/16 13:41 Urine Urobilinogen 1+ (NORMAL) 06/30/16 13:41 Ur Leukocyte Esterase 3+ (NEGATIVE) 06/30/16 13:41 Urine RBC 6-10 /HPF (NEGATIVE) 06/30/16 13:41 Urine WBC 25-50 /HPF (NEGATIVE) 06/30/16 13:41 Ur Squamous Epith Cells Rare /HPF (NEGATIVE) 06/30/16 13:41 Urine Bacteria 3+ /HPF (NEGATIVE) 06/30/16 13:41 Ur Culture Indicated? Yes/culture set up 06/30/16 13:41 - Plan (1) Dehydration Status: Acute Plan: CONTINUE IV FLUIDS, MONITOR LABS. (2) E. coli UTI Status: Acute Plan: CONTINUE ZOSYN IV, MONITOR. (3) Hypokalemia Status: Acute Plan: CONTINUE POTASSIUM PROTOCOL, IV FLUIDS WITH POTASSIUM, MONITOR. (4) Sacral decubitus ulcer Status: Acute Qualifiers: Pressure ulcer stage: P Plan: CONTINUE WOUND CARE, MONITOR. (5) Hypernatremia Status: Acute Plan: CONTINUE IV FLUIDS 1/2NS, MONITOR LABS. (6) Hypotension Status: Acute Qualifiers: Hypotension type: other hypotension type Trimester: T Qualified Code(s): I95.89 - Other hypotension Plan: CONTINUE TO MONITOR. (7) Hyperkalemia Status: Acute Plan: ABOVE. (8) Renal failure Status: Acute Plan: ABOVE. (9) UTI (urinary tract infection) Status: Acute Qualifiers: Urinary tract infection type: acute cystitis Hematuria presence: with hematuria Indwelling urinary catheter type: I Encounter type: E Qualified Code(s): N30.01 - Acute cystitis with hematuria Plan: CONTINUE FORTAZ, LEVAQUIN, MONITOR. (10) CHF (congestive heart failure) Status: Chronic Qualifiers: Congestive heart failure type: combined Congestive heart failure chronicity : chronic Qualified Code(s): I50.42 - Chronic combined systolic (congestive) and diastolic (congestive) heart failure (11) Dementia Status: Chronic Qualifiers: Dementia type: vascular dementia Alzheimer's disease onset: A Dementia behavioral disturbance: without behavioral disturbance Qualified Code(s): F01.50 - Vascular dementia without behavioral disturbance (12) HTN (hypertension) Status: Chronic Qualifiers: Hypertension type: essential hypertension Qualified Code(s): I10 - Essential (primary) hypertension (13) Hypothyroidism Status: Chronic Qualifiers: Hypothyroidism type: acquired Qualified Code(s): E03.9 - Hypothyroidism, unspecified
--- NOTE | 2016-07-07 16:50 | PCM.PROG ---
Progress Note - Progress Note for Day of Date: 07/07/16 - Subjective Subjective: PATIENT CONTINUES ON IV FLUIDS FOR DEHYDRATION AND CONTINUES ON IV ZOSYN FOR E-COLI UTI. DAUGHTER AT BEDSIDE. SHE REPORTS PATIENT IS UNABLE TO EAT REGULAR DIET AND REQUESTS SOFT DIET. WOUND CARE CONTINUES TO SACRUM. PATIENT WAS STARTED ON PERIPHERAL TPN DUE TO VERY POOR NUTRITION. WBC IS IMPROVING. CBC WNL EXCEPT: WBC 10.5, H/H 8.4/25.5. CMP WNL EXCEPT: SODIUM 149 , CHL 113, BUN/CREAT 27/1.22, GFR 45, GLUCOSE 110, CALCIUM 8.1, TOT PROTEIN 5.5 , ALBUMIN 2.5. CHEST XRAY REPORTS NO CHANGE IN RIGHT PERHILAR OPACITY. WE WILL CHANGE DIET TO SOFT, CONTINUE PROCALAMINE, IV ZOSYN, MEGACE, IV FLUIDS WITH POTASSIUM, AND CONTINUE TO MONITOR. WE WILL FOLLOW UP IN AM WITH ADDITIONAL LABS. - Past Medical Family Social History Past Med/Fam/Surg Hx: No changes since H&P Allergies: Allergies Codeine Allergy (Mild, Verified 06/30/16 12:48) CONFUSION Morphine Allergy (Mild, Verified 06/30/16 12:48) CONFUSION - Review of Systems ROS: No change since H&P - Vital Signs and I&O's Vital Signs: Temperature 98.1 F Pulse Rate [Left Brachial] 60 Pulse Rate 61 Respiratory Rate 18 Blood Pressure [Right Arm] 147/44 Blood Pressure [Left Arm] 109/38 O2 Sat by Pulse Oximetry 100 Intake and Output: Intake & Output 07/05/16 07/06/16 07/07/16 07/08/16 11:59 11:59 11:59 11:59 Intake Total 1955 2924 3156 950 Output Total 1580 1550 1250 1200 Balance 375 1374 1906 -250 - Physical Exam Oriented: Person Eyes: Normal. negative: Discharge, Redness Ear: Normal. negative: Swelling, Ecchymosis, Hemotypanum, Abrasion, Laceration Nose: Normal. negative: Injected, Discharge, Blood Throat: Dry. negative: Tonsillar Hypertrophy, Red, Exudate Respiratory: Normal Cardiovascular: Normal. negative: Murmur, Edema : Hematuria, Frequency, Discharge Auscultation: Bowel Sounds: Decreased. negative: Bruit Palpation: Normal. negative: Spleen Enlarged, Liver Enlarged, Mass Pulsatile Tenderness: Normal. negative: Rebound, Guarding, Rigidity Skin: Decreased Turgur, Wound (Right Buttock: 7 small areas of breakdown, MASD; Sacrum: 2ynm5nit3.3cm, MASD; Right Knee skin tear; Left upper arm skin tear; Left Lower leg skin tear) Musculoskeletal: Instability (Non-ambulatory) Psychiatric: Other (Intermittent Confusion) Mood Description: Calm, Appropriate Affect: Normal Speech Pattern: Clear, Appropriate - Laboratory and Diagnostics Result Diagrams: 07/07/16 05:25 07/07/16 05:25 Labs: 07/05/16 00:51 Vaginal Gram Stain - Final 07/05/16 00:51 Vaginal Wound Culture - Preliminary Laboratory WBC 10.5 X10^3/uL (3.6-10.0) H 07/07/16 05:25 RBC 2.68 X10^6/uL (3.5-5.4) L 07/07/16 05:25 Hgb 8.4 g/dL (12.0-16.0) L 07/07/16 05:25 Hct 25.5 % (36.0-47.0) L 07/07/16 05:25 MCV 95.3 fL (80.0-100.0) 07/07/16 05:25 MCH 31.3 pg (27.0-34.0) 07/07/16 05:25 MCHC 32.8 g/dL (33.0-35.0) L 07/07/16 05:25 RDW 13.6 % (11.6-16.5) 07/07/16 05:25 Plt Count 163 X10^3/uL (150.0-450.0) 07/07/16 05:25 Plt Count Comment Adequate (ADEQUATE) 07/07/16 05:25 MPV 7.9 fL (7.4-11.0) 07/07/16 05:25 Neut % 78.3 % (42.0-75.0) H 07/07/16 05:25 Lymph % 10.8 % (21.0-51.0) L 07/07/16 05:25 [place] % 7.5 % (0.0-13.0) 07/07/16 05:25 Eos % 3.2 % (0.9-2.9) H 07/07/16 05:25 Baso % 0.2 % (0.2-1.0) 07/07/16 05:25 Neut # 8.2 x10^3/uL (2.2-4.8) H 07/07/16 05:25 Lymph # 1.1 X10^3/uL (1.3-2.9) L 07/07/16 05:25 [place] # 0.8 x10^3/uL (0.3-0.8) 07/07/16 05:25 Eos # 0.3 x10^3/uL (0.0-0.2) H 07/07/16 05:25 Baso # 0.0 X10^3/uL (0.0-0.1) 07/07/16 05:25 Absolute Nucleated RBC 0.1 /100WBC 07/07/16 05:25 Total Counted 100 07/07/16 05:25 Neutrophils % (Manual) 78 % (39-76) H 07/07/16 05:25 Band Neutrophils % 5 % (0-10) 07/07/16 05:25 Lymphocytes % (Manual) 12 % (13-43) L 07/07/16 05:25 Monocytes % (Manual) 2 % (4-9) L 07/07/16 05:25 Eosinophils % (Manual) 3 % (0-6) 07/07/16 05:25 Plt Morphology Comment Normal (NORMAL) 07/07/16 05:25 RBC Morphology Normal (NORMAL) 07/07/16 05:25 Hypochromasia 1+ A 07/04/16 04:45 Sodium 149 mmol/L (136-145) H 07/07/16 05:25 Corrected Sodium TNP 07/07/16 05:25 Potassium 4.1 mmol/L (3.5-5.1) 07/07/16 05:25 Chloride 113 mmol/L (98-107) H 07/07/16 05:25 Carbon Dioxide 27.4 mmol/L (21-32) 07/07/16 05:25 BUN 27 mg/dL (7-18) H 07/07/16 05:25 Creatinine 1.22 mg/dL (0.55-1.02) H 07/07/16 05:25 Est GFR (MDRD) Af Amer 54 (>60) L 07/07/16 05:25 Est GFR (MDRD) Non-Af 45 (>60) L 07/07/16 05:25 Glucose 110 mg/dL (65-99) H 07/07/16 05:25 Calcium 8.1 mg/dL (8.5-10.1) L 07/07/16 05:25 Corrected Calcium 9.3 mg/dL (8.5-10.1) 07/07/16 05:25 Magnesium 2.3 mg/dL (1.7-2.9) 07/05/16 03:10 Total Bilirubin 0.60 mg/dL (0.2-1.0) 07/07/16 05:25 Direct Bilirubin 0.11 mg/dL (0-0.2) 07/01/16 02:50 Indirect Bilirubin 0.49 mg/dL (0.2-0.8) 07/01/16 02:50 AST 14 Units/L (15-37) L 07/07/16 05:25 ALT 12 Units/L (12-78) 07/07/16 05:25 Alkaline Phosphatase 73 Units/L (46-116) 07/07/16 05:25 Creatine Kinase 7 Units/L (26-192) L 06/30/16 12:55 CK-MB (CK-2) < 1.0 ng/mL (0-4.0) 06/30/16 12:55 CK/CKMB % Calc 14.3 % (<4) 06/30/16 12:55 Troponin I < 0.02 ng/mL (0-1.5) 06/30/16 12:55 Total Protein 5.5 g/dL (6.4-8.2) L 07/07/16 05:25 Albumin 2.5 g/dL (3.4-5.0) L 07/07/16 05:25 Globulin 3.0 g/dL (2.5-4.5) 07/07/16 05:25 Albumin/Globulin Ratio 0.8 Ratio (1.1-2.1) L 07/07/16 05:25 Specimen Type Catherized urine 06/30/16 13:41 Urine Color Yellow (YELLOW) 06/30/16 13:41 Urine Appearance Cloudy (CLEAR) 06/30/16 13:41 Urine pH 5.0 (5.0 - 8.0) 06/30/16 13:41 Ur Specific Oneco 1.010 (1.000-1.030) 06/30/16 13:41 Urine Protein 2+ (NEGATIVE) 06/30/16 13:41 Urine Glucose (UA) Negative (NEGATIVE) 06/30/16 13:41 Urine Ketones 1+ (NEGATIVE) 06/30/16 13:41 Urine Occult Blood 4+ (NEGATIVE) 06/30/16 13:41 Urine Nitrite Positive (NEGATIVE) 06/30/16 13:41 Urine Bilirubin Negative (NEGATIVE) 06/30/16 13:41 Urine Urobilinogen 1+ (NORMAL) 06/30/16 13:41 Ur Leukocyte Esterase 3+ (NEGATIVE) 06/30/16 13:41 Urine RBC 6-10 /HPF (NEGATIVE) 06/30/16 13:41 Urine WBC 25-50 /HPF (NEGATIVE) 06/30/16 13:41 Ur Squamous Epith Cells Rare /HPF (NEGATIVE) 06/30/16 13:41 Urine Bacteria 3+ /HPF (NEGATIVE) 06/30/16 13:41 Ur Culture Indicated? Yes/culture set up 06/30/16 13:41 - Plan (1) Dehydration Status: Acute Plan: CONTINUE IV FLUIDS, MONITOR LABS. (2) E. coli UTI Status: Acute Plan: CONTINUE ZOSYN IV, MONITOR. (3) Hypokalemia Status: Acute Plan: CONTINUE POTASSIUM PROTOCOL, IV FLUIDS WITH POTASSIUM, MONITOR. (4) Sacral decubitus ulcer Status: Acute Qualifiers: Pressure ulcer stage: P Plan: CONTINUE WOUND CARE, MONITOR. (5) Hypernatremia Status: Acute Plan: CONTINUE IV FLUIDS 1/2NS, MONITOR LABS. (6) Hypotension Status: Acute Qualifiers: Hypotension type: other hypotension type Trimester: T Qualified Code(s): I95.89 - Other hypotension Plan: CONTINUE TO MONITOR. (7) Hyperkalemia Status: Acute Plan: ABOVE. (8) Renal failure Status: Acute Plan: ABOVE. (9) UTI (urinary tract infection) Status: Acute Qualifiers: Urinary tract infection type: acute cystitis Hematuria presence: with hematuria Indwelling urinary catheter type: I Encounter type: E Qualified Code(s): N30.01 - Acute cystitis with hematuria Plan: CONTINUE FORTAZ, LEVAQUIN, MONITOR. (10) CHF (congestive heart failure) Status: Chronic Qualifiers: Congestive heart failure type: combined Congestive heart failure chronicity : chronic Qualified Code(s): I50.42 - Chronic combined systolic (congestive) and diastolic (congestive) heart failure (11) Dementia Status: Chronic Qualifiers: Dementia type: vascular dementia Alzheimer's disease onset: A Dementia behavioral disturbance: without behavioral disturbance Qualified Code(s): F01.50 - Vascular dementia without behavioral disturbance (12) HTN (hypertension) Status: Chronic Qualifiers: Hypertension type: essential hypertension Qualified Code(s): I10 - Essential (primary) hypertension (13) Hypothyroidism Status: Chronic Qualifiers: Hypothyroidism type: acquired Qualified Code(s): E03.9 - Hypothyroidism, unspecified
[2016-07-07] MEDS: DUONEB 0.5 MG/3 MG NEB SCH ×2 (17:03→22:02)
[2016-07-07] MEDS ORDERED: SNACK - Diabetic Appropriate PO SCH (20:00)
[2016-07-07] MEDS: SNACK - Diabetic Appropriate PO SCH ×2 (21:00→21:21)
[2016-07-07] MEDS: ELDERTONIC + WINE PO SCH (21:22)
[2016-07-08] MEDS: DUONEB 0.5 MG/3 MG NEB SCH ×6 (01:15→20:30)
[2016-07-08] MEDS: GENTAMICIN SULF (OPHTH) AFFEYE SCH ×4 (03:11→20:54)
[2016-07-08] MEDS: ZOSYN VIAL 2.25 GM 2.25 GM in NS 100 ML IV + SPIKE MINIBAG* 100 ML IV SCH ×3 (05:22→21:04)
[2016-07-08] MEDS: NORCO 10/325 TAB PO SCH ×3 (05:22→21:03)
[2016-07-08 06:25] LABS: BASOPHILS # (AUTO) 0.1 X10^3/uL (0.0-0.1); BASOPHILS % (AUTO) 0.5 % (0.2-1.0); EOSINOPHILS # (AUTO) 0.2 x10^3/uL (0.0-0.2); EOSINOPHILS % (AUTO) 1.4 % (0.9-2.9); HEMATOCRIT 23.3 % (36.0-47.0); HEMOGLOBIN 7.6 g/dL (12.0-16.0); LYMPHOCYTES # (AUTO) 1.1 X10^3/uL (1.3-2.9); LYMPHOCYTES % (AUTO) 9.7 % (21.0-51.0); MEAN CORPUSCULAR HEMOGLOBIN 31.4 pg (27.0-34.0); MEAN CORPUSCULAR HGB CONC 32.5 g/dL (33.0-35.0); MEAN CORPUSCULAR VOLUME 96.6 fL (80.0-100.0); MEAN PLATELET VOLUME 7.6 fL (7.4-11.0); MONOCYTES # (AUTO) 0.8 x10^3/uL (0.3-0.8); MONOCYTES % (AUTO) 6.9 % (0.0-13.0); NEUTROPHILS # (AUTO) 9.3 x10^3/uL (2.2-4.8); NEUTROPHILS % (AUTO) 81.5 % (42.0-75.0); PLATELET COUNT 171 X10^3/uL (150.0-450.0); RED BLOOD COUNT 2.41 X10^6/uL (3.5-5.4); RED CELL DISTRIBUTION WIDTH 13.4 % (11.6-16.5); WHITE BLOOD COUNT 11.4 X10^3/uL (3.6-10.0)
[2016-07-08 06:45] LABS: ALBUMIN 2.5 g/dL (3.4-5.0); CALCIUM 8.1 mg/dL (8.5-10.1); CARBON DIOXIDE 25.9 mmol/L (21-32); COR CA(FOR HYPOALB) 9.3 mg/dL (8.5-10.1); CREATININE 1.25 mg/dL (0.55-1.02); TOTAL PROTEIN 5.6 g/dL (6.4-8.2)
[2016-07-08 07:24] LABS: PLATELET MORPHOLOGY COMMENT NORMAL (NORMAL)
--- NOTE | 2016-07-08 07:24 | RAD ---
HISTORY: Shortness of breath Study: Chest one view Comparison: July 07, 2016, July 06, 2016 Findings: The patient is rotated to the right. The heart is enlarged. No definite congestive heart failure is noted. There has been improvement in the right perihilar opacity being followed. The lungs are hypoi nflated but free of acute alveolar infiltrates. No pleural effusions are identified. The bony thorax is unremarkable. IMPRESSION: Cardiomegaly without congestive heart failure Lungs hypoinflated but free of infiltrates Reported By:
[2016-07-08 07:25] LABS: HYPOCHROMASIA SLIGHT
[2016-07-08] MEDS: ALBUMIN HUMAN 25%- 100ML 100 ML IV SCH (08:55)
[2016-07-08] MEDS: ARTIFICIAL TEARS DROPS EACHEYE SCH ×2 (08:56→20:54)
[2016-07-08] MEDS: COLACE CAP 100 MG PO SCH (08:56)
[2016-07-08] MEDS: ZINC SULFATE PO SCH (08:57)
[2016-07-08] MEDS: NAPROSYN PO SCH ×2 (08:57→21:03)
[2016-07-08] MEDS: MEGACE PO SCH ×2 (08:57→20:56)
[2016-07-08] MEDS: SYNTHROID 100 mcg TAB PO SCH (08:57)
--- NOTE | 2016-07-08 12:50 | CT ---
HISTORY: Altered mental status Study: CT head without contrast Comparison: April 09, 2016 Technique: Axial non contrast images with coronal and sagittal reformats. Dose reduction procedures were used with MA/kv adjusted for body size. Findings: The ventricles, cortical sulci, and other CSF spaces are enlarged consistent with generalized atroph y. There are no focal areas of abnormal attenuation to suggest recent or remote CVA, hemorrhage, mas s lesion, or extra-axial fluid collection. Those sinuses visualized were clear. IMPRESSION: No acute intracranial abnormality Severe diffuse generalized atrophy Reported By:
--- NOTE | 2016-07-08 13:05 | PCM.PROG ---
Progress Note - Progress Note for Day of Date: 07/08/16 - Subjective Subjective: PATIENT IS LETHARGIC THIS MORNING. DAUGHTER AT BEDSIDE AND REPORTS SHE HAS TRIED TO WAKE HER FOR BREAKFAST WITH NO SUCCESS. PATIENT WITH NO DISTRESS NOTED. DIET WAS CHANGED TO SOFT YESTERDAY. WE WILL LET SPEECH RE- EVALUATE DUE TO LETHARGY TODAY. WOUND CARE CONTINUES TO SACRUM. PATIENT CONTINUES ON PERIPHERAL TPN DUE TO POOR NUTRITION. WE DISCUSS FURTHER TREATMENT WITH DAUGHTER AND SHE REQUESTS NO PEG TUBE PLACEMENT. PATIENT IS METABOLICALLY AND HEMODYMICALLY STABLE; PATIENT IS JUST NOT EATING OR MOVING. CBC WNL EXCEPT: WBC 11.4, H/H 7.6/23.3. CMP WNL EXCEPT: SODIUM 146, CHL 113, BUN/CREAT 27/1.25, GFR 44, GLUCOSE 117, CALCIUM 8.1, TOT PROTEIN 5.6, ALBUMIN 2.5. CHEST XRAY REPORTS CARDIOMEGALY WITHOUT CHF, LUNGS FREE OF INFILTRATES. WE WILL OBTAIN CT OF BRAIN TODAY TO RULE OUT CVA, CONSULT SPEECH THERAPY FOR SWALLOW EVAL, CONTINUE PERIPHERAL TPN, IV ZOSYN, MEGACE, IV FLUIDS WITH POTASSIUM, AND CONTINUE TO MONITOR. WE WILL FOLLOW UP IN AM WITH ADDITIONAL LABS AND CHEST XRAY. - Past Medical Family Social History Past Med/Fam/Surg Hx: No changes since H&P Allergies: Allergies Codeine Allergy (Mild, Verified 06/30/16 12:48) CONFUSION Morphine Allergy (Mild, Verified 06/30/16 12:48) CONFUSION - Review of Systems ROS: No change since H&P - Vital Signs and I&O's Vital Signs: Temperature 98.5 F Pulse Rate [Left Brachial] 70 Pulse Rate 61 Respiratory Rate 19 Blood Pressure [Right Arm] 147/44 Blood Pressure [Left Arm] 105/39 O2 Sat by Pulse Oximetry 99 Intake and Output: Intake & Output 07/06/16 07/07/16 07/08/16 07/09/16 11:59 11:59 11:59 11:59 Intake Total 2924 3156 3652 Output Total 1550 1250 5 Balance 1374 1906 1627 - Physical Exam Oriented: Unable to test Eyes: Normal. negative: Discharge, Redness Ear: Normal. negative: Swelling, Ecchymosis, Hemotypanum, Abrasion, Laceration Nose: Normal. negative: Injected, Discharge, Blood Throat: Dry. negative: Tonsillar Hypertrophy, Red, Exudate Respiratory: Normal Cardiovascular: Normal. negative: Murmur, Edema : Frequency, Discharge Auscultation: Bowel Sounds: Decreased. negative: Bruit Palpation: Normal. negative: Spleen Enlarged, Liver Enlarged, Mass Pulsatile Tenderness: Normal. negative: Rebound, Guarding, Rigidity Skin: Decreased Turgur, Wound (Right Buttock: 7 small areas of breakdown, MASD; Sacrum: [id number], MASD; Right Knee skin tear; Left upper arm skin tear; Left Lower leg skin tear) Musculoskeletal: Instability (Non-ambulatory) Psychiatric: Other (Lethargy) Speech Pattern: Delayed - Laboratory and Diagnostics Result Diagrams: 07/08/16 05:20 07/08/16 05:20 Labs: 07/05/16 00:51 Vaginal Gram Stain - Final 07/05/16 00:51 Vaginal Wound Culture - Preliminary Proteus Mirabilis Laboratory WBC 11.4 X10^3/uL (3.6-10.0) H 07/08/16 05:20 RBC 2.41 X10^6/uL (3.5-5.4) L 07/08/16 05:20 Hgb 7.6 g/dL (12.0-16.0) L 07/08/16 05:20 Hct 23.3 % (36.0-47.0) L 07/08/16 05:20 MCV 96.6 fL (80.0-100.0) 07/08/16 05:20 MCH 31.4 pg (27.0-34.0) 07/08/16 05:20 MCHC 32.5 g/dL (33.0-35.0) L 07/08/16 05:20 RDW 13.4 % (11.6-16.5) 07/08/16 05:20 Plt Count 171 X10^3/uL (150.0-450.0) 07/08/16 05:20 Plt Count Comment Adequate (ADEQUATE) 07/08/16 05:20 MPV 7.6 fL (7.4-11.0) 07/08/16 05:20 Neut % 81.5 % (42.0-75.0) H 07/08/16 05:20 Lymph % 9.7 % (21.0-51.0) L 07/08/16 05:20 [place] % 6.9 % (0.0-13.0) 07/08/16 05:20 Eos % 1.4 % (0.9-2.9) 07/08/16 05:20 Baso % 0.5 % (0.2-1.0) 07/08/16 05:20 Neut # 9.3 x10^3/uL (2.2-4.8) H 07/08/16 05:20 Lymph # 1.1 X10^3/uL (1.3-2.9) L 07/08/16 05:20 [place] # 0.8 x10^3/uL (0.3-0.8) 07/08/16 05:20 Eos # 0.2 x10^3/uL (0.0-0.2) 07/08/16 05:20 Baso # 0.1 X10^3/uL (0.0-0.1) 07/08/16 05:20 Absolute Nucleated RBC 0.1 /100WBC 07/08/16 05:20 Total Counted 100 07/07/16 05:25 Neutrophils % (Manual) 78 % (39-76) H 07/07/16 05:25 Band Neutrophils % 5 % (0-10) 07/07/16 05:25 Lymphocytes % (Manual) 12 % (13-43) L 07/07/16 05:25 Monocytes % (Manual) 2 % (4-9) L 07/07/16 05:25 Eosinophils % (Manual) 3 % (0-6) 07/07/16 05:25 Plt Morphology Comment Normal (NORMAL) 07/08/16 05:20 RBC Morphology Abnormal (NORMAL) A 07/08/16 05:20 Hypochromasia Slight A 07/08/16 05:20 Sodium 146 mmol/L (136-145) H 07/08/16 05:20 Corrected Sodium 146 mmol/L (136-145) H 07/08/16 05:20 Potassium 4.9 mmol/L (3.5-5.1) 07/08/16 05:20 Chloride 113 mmol/L (98-107) H 07/08/16 05:20 Carbon Dioxide 25.9 mmol/L (21-32) 07/08/16 05:20 BUN 27 mg/dL (7-18) H 07/08/16 05:20 Creatinine 1.25 mg/dL (0.55-1.02) H 07/08/16 05:20 Est GFR (MDRD) Af Amer 53 (>60) L 07/08/16 05:20 Est GFR (MDRD) Non-Af 44 (>60) L 07/08/16 05:20 Glucose 117 mg/dL (65-99) H 07/08/16 05:20 Calcium 8.1 mg/dL (8.5-10.1) L 07/08/16 05:20 Corrected Calcium 9.3 mg/dL (8.5-10.1) 07/08/16 05:20 Magnesium 2.3 mg/dL (1.7-2.9) 07/05/16 03:10 Total Bilirubin 0.50 mg/dL (0.2-1.0) 07/08/16 05:20 Direct Bilirubin 0.11 mg/dL (0-0.2) 07/01/16 02:50 Indirect Bilirubin 0.49 mg/dL (0.2-0.8) 07/01/16 02:50 AST 14 Units/L (15-37) L 07/08/16 05:20 ALT 9 Units/L (12-78) L 07/08/16 05:20 Alkaline Phosphatase 72 Units/L (46-116) 07/08/16 05:20 Creatine Kinase 7 Units/L (26-192) L 06/30/16 12:55 CK-MB (CK-2) < 1.0 ng/mL (0-4.0) 06/30/16 12:55 CK/CKMB % Calc 14.3 % (<4) 06/30/16 12:55 Troponin I < 0.02 ng/mL (0-1.5) 06/30/16 12:55 Total Protein 5.6 g/dL (6.4-8.2) L 07/08/16 05:20 Albumin 2.5 g/dL (3.4-5.0) L 07/08/16 05:20 Globulin 3.1 g/dL (2.5-4.5) 07/08/16 05:20 Albumin/Globulin Ratio 0.8 Ratio (1.1-2.1) L 07/08/16 05:20 Specimen Type Catherized urine 06/30/16 13:41 Urine Color Yellow (YELLOW) 06/30/16 13:41 Urine Appearance Cloudy (CLEAR) 06/30/16 13:41 Urine pH 5.0 (5.0 - 8.0) 06/30/16 13:41 Ur Specific [place] 1.010 (1.000-1.030) 06/30/16 13:41 Urine Protein 2+ (NEGATIVE) 06/30/16 13:41 Urine Glucose (UA) Negative (NEGATIVE) 06/30/16 13:41 Urine Ketones 1+ (NEGATIVE) 06/30/16 13:41 Urine Occult Blood 4+ (NEGATIVE) 06/30/16 13:41 Urine Nitrite Positive (NEGATIVE) 06/30/16 13:41 Urine Bilirubin Negative (NEGATIVE) 06/30/16 13:41 Urine Urobilinogen 1+ (NORMAL) 06/30/16 13:41 Ur Leukocyte Esterase 3+ (NEGATIVE) 06/30/16 13:41 Urine RBC 6-10 /HPF (NEGATIVE) 06/30/16 13:41 Urine WBC 25-50 /HPF (NEGATIVE) 06/30/16 13:41 Ur Squamous Epith Cells Rare /HPF (NEGATIVE) 06/30/16 13:41 Urine Bacteria 3+ /HPF (NEGATIVE) 06/30/16 13:41 Ur Culture Indicated? Yes/culture set up 06/30/16 13:41 - Plan (1) Altered mental status Status: Acute Qualifiers: Altered mental status type: somnolence Coma depth: C Coma timing: C Qualified Code(s): R40.0 - Somnolence Plan: OBTAIN CT OF BRAIN TODAY, CONTINUE TO MONITOR. (2) Poor nutrition Status: Acute Plan: SPEECH TO RE-EVALUATE, CONTINUE PERIPHERAL TPN, IV FLUIDS, ALBUMIN, MONITOR. (3) Dehydration Status: Acute Plan: CONTINUE IV FLUIDS, MONITOR LABS. (4) E. coli UTI Status: Acute Plan: CONTINUE ZOSYN IV, MONITOR. (5) Hypokalemia Status: Acute Plan: CONTINUE POTASSIUM PROTOCOL, IV FLUIDS WITH POTASSIUM, MONITOR. (6) Sacral decubitus ulcer Status: Acute Qualifiers: Pressure ulcer stage: P Plan: CONTINUE WOUND CARE, MONITOR. (7) Hypernatremia Status: Acute Plan: CONTINUE IV FLUIDS 1/2NS, MONITOR LABS. (8) Hypotension Status: Acute Qualifiers: Hypotension type: other hypotension type Trimester: T Qualified Code(s): I95.89 - Other hypotension Plan: CONTINUE TO MONITOR. (9) Hyperkalemia Status: Acute Plan: ABOVE. (10) Renal failure Status: Acute Plan: ABOVE. (11) UTI (urinary tract infection) Status: Acute Qualifiers: Urinary tract infection type: acute cystitis Hematuria presence: with hematuria Indwelling urinary catheter type: I Encounter type: E Qualified Code(s): N30.01 - Acute cystitis with hematuria Plan: CONTINUE FORTAZ, LEVAQUIN, MONITOR. (12) CHF (congestive heart failure) Status: Chronic Qualifiers: Congestive heart failure type: combined Congestive heart failure chronicity : chronic Qualified Code(s): I50.42 - Chronic combined systolic (congestive) and diastolic (congestive) heart failure (13) Dementia Status: Chronic Qualifiers: Dementia type: vascular dementia Alzheimer's disease onset: A Dementia behavioral disturbance: without behavioral disturbance Qualified Code(s): F01.50 - Vascular dementia without behavioral disturbance (14) HTN (hypertension) Status: Chronic Qualifiers: Hypertension type: essential hypertension Qualified Code(s): I10 - Essential (primary) hypertension (15) Hypothyroidism Status: Chronic Qualifiers: Hypothyroidism type: acquired Qualified Code(s): E03.9 - Hypothyroidism, unspecified
[2016-07-08] MEDS: CLINIMIX 4.25 %/10 % 1,000 ML with MVI INJ (ADULT) 10 ML, TRACE ELEMENTS INJ 10 ML, TPN... IV SCH ×5 (17:47)
[2016-07-08] MEDS: LR IV SCH ×2 (19:36)
[2016-07-08] MEDS: POTASSIUM CHLORIDE IV SCH ×2 (19:36)
[2016-07-08] MEDS: SNACK - Diabetic Appropriate PO SCH (20:54)
[2016-07-08] MEDS: ELDERTONIC + WINE PO SCH (21:03)
[2016-07-09] MEDS: DUONEB 0.5 MG/3 MG NEB SCH ×6 (01:25→21:44)
[2016-07-09] MEDS: LR IV SCH ×6 (01:29→22:15)
[2016-07-09] MEDS: POTASSIUM CHLORIDE IV SCH ×6 (01:29→22:15)
[2016-07-09] MEDS: GENTAMICIN SULF (OPHTH) AFFEYE SCH ×5 (02:23→22:12)
[2016-07-09 05:31] LABS: ALBUMIN 2.6 g/dL (3.4-5.0); CALCIUM 8.2 mg/dL (8.5-10.1); COR CA(FOR HYPOALB) 9.3 mg/dL (8.5-10.1); CREATININE 1.19 mg/dL (0.55-1.02); TOTAL PROTEIN 5.9 g/dL (6.4-8.2)
[2016-07-09 05:33] LABS: BASOPHILS % (AUTO) 0.3 % (0.2-1.0); EOSINOPHILS # (AUTO) 0.3 x10^3/uL (0.0-0.2); EOSINOPHILS % (AUTO) 2.9 % (0.9-2.9); HEMATOCRIT 22.5 % (36.0-47.0); HEMOGLOBIN 7.5 g/dL (12.0-16.0); LYMPHOCYTES # (AUTO) 0.9 X10^3/uL (1.3-2.9); MEAN CORPUSCULAR HEMOGLOBIN 31.8 pg (27.0-34.0); MEAN CORPUSCULAR HGB CONC 33.2 g/dL (33.0-35.0); MEAN PLATELET VOLUME 7.7 fL (7.4-11.0); MONOCYTES # (AUTO) 0.8 x10^3/uL (0.3-0.8); MONOCYTES % (AUTO) 8.1 % (0.0-13.0); NEUTROPHILS # (AUTO) 7.9 x10^3/uL (2.2-4.8); NEUTROPHILS % (AUTO) 79.7 % (42.0-75.0); PLATELET COUNT 213 X10^3/uL (150.0-450.0); RED BLOOD COUNT 2.34 X10^6/uL (3.5-5.4); RED CELL DISTRIBUTION WIDTH 13.7 % (11.6-16.5); WHITE BLOOD COUNT 9.9 X10^3/uL (3.6-10.0)
[2016-07-09] MEDS: ZOSYN VIAL 2.25 GM 2.25 GM in NS 100 ML IV + SPIKE MINIBAG* 100 ML IV SCH ×3 (05:52→22:12)
[2016-07-09] MEDS: NORCO 10/325 TAB PO SCH ×4 (05:53→22:13)
[2016-07-09 06:12] LABS: HYPOCHROMASIA 1+; PLATELET MORPHOLOGY COMMENT NORMAL (NORMAL)
[2016-07-09] MEDS: ALBUMIN HUMAN 25%- 100ML 100 ML IV SCH ×2 (07:53→08:16)
[2016-07-09] MEDS: ZINC SULFATE PO SCH ×2 (07:54→08:17)
[2016-07-09] MEDS: SYNTHROID 100 mcg TAB PO SCH ×2 (07:55→08:17)
[2016-07-09] MEDS: MEGACE PO SCH ×3 (07:55→22:13)
[2016-07-09] MEDS: PEPCID TAB 20 MG PO SCH ×2 (07:55→08:17)
[2016-07-09] MEDS: ARTIFICIAL TEARS DROPS EACHEYE SCH ×3 (07:55→22:12)
[2016-07-09] MEDS: COLACE CAP 100 MG PO SCH ×2 (07:56→08:18)
[2016-07-09] MEDS: NAPROSYN PO SCH ×2 (08:18→22:01)
[2016-07-09] MEDS ORDERED: DIFLUCAN 200 MG IV PREMIX* 200 MG/100 ML BAG IV SCH (11:00)
[2016-07-09] MEDS ORDERED: INVANZ INJ 1 GM VIAL 1 GM in NS 50 ML IV + SPIKE MINIBAG* 50 ML IV SCH (16:00)
[2016-07-09] MEDS: CLINIMIX 4.25 %/10 % 1,000 ML with MVI INJ (ADULT) 10 ML, TRACE ELEMENTS INJ 10 ML, TPN... IV SCH ×5 (16:12)
[2016-07-09] MEDS: DURAGESIC 75 mcg/HR PATCH TD SCH (16:12)
[2016-07-09] MEDS: SNACK - Diabetic Appropriate PO SCH (22:11)
[2016-07-09] MEDS: ELDERTONIC + WINE PO SCH (22:13)
[2016-07-10] MEDS: DUONEB 0.5 MG/3 MG NEB SCH ×2 (01:11→04:33)
[2016-07-10] MEDS: GENTAMICIN SULF (OPHTH) AFFEYE SCH (03:25)
[2016-07-10 05:22] LABS: BASOPHILS # (AUTO) 0.1 X10^3/uL (0.0-0.1); BASOPHILS % (AUTO) 0.5 % (0.2-1.0); EOSINOPHILS # (AUTO) 0.4 x10^3/uL (0.0-0.2); EOSINOPHILS % (AUTO) 3.7 % (0.9-2.9); HEMATOCRIT 22.8 % (36.0-47.0); HEMOGLOBIN 7.5 g/dL (12.0-16.0); LYMPHOCYTES % (AUTO) 8.7 % (21.0-51.0); MEAN CORPUSCULAR HEMOGLOBIN 31.4 pg (27.0-34.0); MEAN CORPUSCULAR HGB CONC 32.9 g/dL (33.0-35.0); MEAN CORPUSCULAR VOLUME 95.5 fL (80.0-100.0); MEAN PLATELET VOLUME 7.2 fL (7.4-11.0); MONOCYTES # (AUTO) 0.8 x10^3/uL (0.3-0.8); NEUTROPHILS # (AUTO) 9.1 x10^3/uL (2.2-4.8); NEUTROPHILS % (AUTO) 80.1 % (42.0-75.0); PLATELET COUNT 292 X10^3/uL (150.0-450.0); RED BLOOD COUNT 2.39 X10^6/uL (3.5-5.4); RED CELL DISTRIBUTION WIDTH 13.8 % (11.6-16.5); WHITE BLOOD COUNT 11.3 X10^3/uL (3.6-10.0)
[2016-07-10 05:42] LABS: ALANINE AMINOTRANSFERASE 14 Units/L (12-78); ALBUMIN 2.7 g/dL (3.4-5.0); ALKALINE PHOSPHATASE 79 Units/L (46-116); ASPARTATE AMINO TRANSFERASE 11 Units/L (15-37); BLOOD UREA NITROGEN 21 mg/dL (7-18); CALCIUM 8.3 mg/dL (8.5-10.1); CARBON DIOXIDE 26.6 mmol/L (21-32); CHLORIDE 111 mmol/L (98-107); COR CA(FOR HYPOALB) 9.3 mg/dL (8.5-10.1); CREATININE 1.16 mg/dL (0.55-1.02); GLUCOSE 85 mg/dL (65-99); SODIUM 144 mmol/L (136-145); TOTAL PROTEIN 6.2 g/dL (6.4-8.2); eGFR BLACK RACES 57 (>60); eGFR NON BLACK RACES 47 (>60)
[2016-07-10 05:58] LABS: PLATELET MORPHOLOGY COMMENT NORMAL (NORMAL)
[2016-07-10 05:59] LABS: HYPOCHROMASIA 1+
[2016-07-10] MEDS: ZOSYN VIAL 2.25 GM 2.25 GM in NS 100 ML IV + SPIKE MINIBAG* 100 ML IV SCH (06:05)
[2016-07-10] MEDS: NORCO 10/325 TAB PO SCH (06:05)
--- NOTE | 2016-07-10 07:59 | PCM.PROG ---
Progress Note - Progress Note for Day of Date: 07/09/16 - Subjective Subjective: PATIENT IS DROWSY THIS MORNING. CT OF BRAIN WAS NEGATIVE FOR ACUTE INTRACRANIAL ABNORMALITY. SPEECH RE-EVALUATED AND RECOMMENDED PUREED DIET FOR PATIENT. PATIENT IS TAKING VERY SMALL AMOUNTS OF FOOD DURING THE DAY. WE ARE HOPING APPETITE WILL IMPROVE AND WE WILL THEN WEAN TPN. PATIENT IS NOTED WITH ODOROUS VAGINAL DISCHARGE, WHICH IS YEAST. WOUND CARE CONTINUES TO SACRUM. CBC WNL EXCEPT: H/H 9.5/22.5. CMP WNL EXCEPT: CHL 111, BUN/CREAT 25/1.19, GFR 46, GLUCOSE 111, CALCIUM 8.2, TOT PROTEIN 5.9, ALBUMIN 2.6. WE WILL DECREASE POTASSIUM IN IV FLUIDS TO 40MEQ, START DIFLUCAN IV, CONTINUE PERIPHERAL TPN, IV ZOSYN, MEGACE, IV FLUIDS WITH POTASSIUM, AND CONTINUE TO MONITOR. WE WILL FOLLOW UP IN AM WITH ADDITIONAL LABS AND CHEST XRAY. - Past Medical Family Social History Past Med/Fam/Surg Hx: No changes since H&P Allergies: Allergies Codeine Allergy (Mild, Verified 06/30/16 12:48) CONFUSION Morphine Allergy (Mild, Verified 06/30/16 12:48) CONFUSION - Review of Systems ROS: No change since H&P - Vital Signs and I&O's Vital Signs: Temperature 98.3 F Pulse Rate [Left Brachial] 63 Pulse Rate 76 Respiratory Rate 13 Blood Pressure [Right Arm] 147/44 Blood Pressure [Left Arm] 118/50 O2 Sat by Pulse Oximetry 100 Intake and Output: Intake & Output 07/07/16 07/08/16 07/09/16 07/10/16 11:59 11:59 11:59 11:59 Intake Total 3156 3652 2240 1889 Output Total 1250 2025 600 1800 Balance 1906 1627 1640 89 - Physical Exam Oriented: Person Eyes: Normal. negative: Discharge, Redness Ear: Normal. negative: Swelling, Ecchymosis, Hemotypanum, Abrasion, Laceration Nose: Normal. negative: Injected, Discharge, Blood Throat: Dry. negative: Tonsillar Hypertrophy, Red, Exudate Respiratory: Normal Cardiovascular: Normal. negative: Murmur, Edema : Frequency, Discharge Auscultation: Bowel Sounds: Decreased. negative: Bruit Palpation: Normal. negative: Spleen Enlarged, Liver Enlarged, Mass Pulsatile Tenderness: Normal. negative: Rebound, Guarding, Rigidity Skin: Decreased Turgur, Wound (Right Buttock: 7 small areas of breakdown, MASD; Sacrum: 4mln2wnd5.3cm, MASD; Right Knee skin tear; Left upper arm skin tear; Left Lower leg skin tear) Musculoskeletal: Instability (Non-ambulatory) Psychiatric: Other (drowsy) Mood Description: Calm, Appropriate Affect: Normal Speech Pattern: Clear - Laboratory and Diagnostics Result Diagrams: 07/10/16 04:55 07/10/16 04:55 Labs: 07/05/16 00:51 Vaginal Gram Stain - Final 07/05/16 00:51 Vaginal Wound Culture - Final Proteus Mirabilis Escherichia Coli Laboratory WBC 11.3 X10^3/uL (3.6-10.0) H 07/10/16 04:55 RBC 2.39 X10^6/uL (3.5-5.4) L 07/10/16 04:55 Hgb 7.5 g/dL (12.0-16.0) L 07/10/16 04:55 Hct 22.8 % (36.0-47.0) L 07/10/16 04:55 MCV 95.5 fL (80.0-100.0) 07/10/16 04:55 MCH 31.4 pg (27.0-34.0) 07/10/16 04:55 MCHC 32.9 g/dL (33.0-35.0) L 07/10/16 04:55 RDW 13.8 % (11.6-16.5) 07/10/16 04:55 Plt Count 292 X10^3/uL (150.0-450.0) 07/10/16 04:55 Plt Count Comment Adequate (ADEQUATE) 07/10/16 04:55 MPV 7.2 fL (7.4-11.0) L 07/10/16 04:55 Neut % 80.1 % (42.0-75.0) H 07/10/16 04:55 Lymph % 8.7 % (21.0-51.0) L 07/10/16 04:55 [place] % 7.0 % (0.0-13.0) 07/10/16 04:55 Eos % 3.7 % (0.9-2.9) H 07/10/16 04:55 Baso % 0.5 % (0.2-1.0) 07/10/16 04:55 Neut # 9.1 x10^3/uL (2.2-4.8) H 07/10/16 04:55 Lymph # 1.0 X10^3/uL (1.3-2.9) L 07/10/16 04:55 [place] # 0.8 x10^3/uL (0.3-0.8) 07/10/16 04:55 Eos # 0.4 x10^3/uL (0.0-0.2) H 07/10/16 04:55 Baso # 0.1 X10^3/uL (0.0-0.1) 07/10/16 04:55 Absolute Nucleated RBC 0.0 /100WBC 07/10/16 04:55 Total Counted 100 07/07/16 05:25 Neutrophils % (Manual) 78 % (39-76) H 07/07/16 05:25 Band Neutrophils % 5 % (0-10) 07/07/16 05:25 Lymphocytes % (Manual) 12 % (13-43) L 07/07/16 05:25 Monocytes % (Manual) 2 % (4-9) L 07/07/16 05:25 Eosinophils % (Manual) 3 % (0-6) 07/07/16 05:25 Plt Morphology Comment Normal (NORMAL) 07/10/16 04:55 RBC Morphology Abnormal (NORMAL) A 07/10/16 04:55 Hypochromasia 1+ A 07/10/16 04:55 Sodium 144 mmol/L (136-145) 07/10/16 04:55 Corrected Sodium TNP 07/10/16 04:55 Potassium 5.2 mmol/L (3.5-5.1) H 07/10/16 04:55 Chloride 111 mmol/L (98-107) H 07/10/16 04:55 Carbon Dioxide 26.6 mmol/L (21-32) 07/10/16 04:55 BUN 21 mg/dL (7-18) H 07/10/16 04:55 Creatinine 1.16 mg/dL (0.55-1.02) H 07/10/16 04:55 Est GFR (MDRD) Af Amer 57 (>60) L 07/10/16 04:55 Est GFR (MDRD) Non-Af 47 (>60) L 07/10/16 04:55 Glucose 85 mg/dL (65-99) 07/10/16 04:55 Calcium 8.3 mg/dL (8.5-10.1) L 07/10/16 04:55 Corrected Calcium 9.3 mg/dL (8.5-10.1) 07/10/16 04:55 Magnesium 2.3 mg/dL (1.7-2.9) 07/05/16 03:10 Total Bilirubin 0.50 mg/dL (0.2-1.0) 07/10/16 04:55 Direct Bilirubin 0.11 mg/dL (0-0.2) 07/01/16 02:50 Indirect Bilirubin 0.49 mg/dL (0.2-0.8) 07/01/16 02:50 AST 11 Units/L (15-37) L 07/10/16 04:55 ALT 14 Units/L (12-78) 07/10/16 04:55 Alkaline Phosphatase 79 Units/L (46-116) 07/10/16 04:55 Creatine Kinase 7 Units/L (26-192) L 06/30/16 12:55 CK-MB (CK-2) < 1.0 ng/mL (0-4.0) 06/30/16 12:55 CK/CKMB % Calc 14.3 % (<4) 06/30/16 12:55 Troponin I < 0.02 ng/mL (0-1.5) 06/30/16 12:55 Total Protein 6.2 g/dL (6.4-8.2) L 07/10/16 04:55 Albumin 2.7 g/dL (3.4-5.0) L 07/10/16 04:55 Globulin 3.5 g/dL (2.5-4.5) 07/10/16 04:55 Albumin/Globulin Ratio 0.8 Ratio (1.1-2.1) L 07/10/16 04:55 Specimen Type Catherized urine 06/30/16 13:41 Urine Color Yellow (YELLOW) 06/30/16 13:41 Urine Appearance Cloudy (CLEAR) 06/30/16 13:41 Urine pH 5.0 (5.0 - 8.0) 06/30/16 13:41 Ur Specific [place] 1.010 (1.000-1.030) 06/30/16 13:41 Urine Protein 2+ (NEGATIVE) 06/30/16 13:41 Urine Glucose (UA) Negative (NEGATIVE) 06/30/16 13:41 Urine Ketones 1+ (NEGATIVE) 06/30/16 13:41 Urine Occult Blood 4+ (NEGATIVE) 06/30/16 13:41 Urine Nitrite Positive (NEGATIVE) 06/30/16 13:41 Urine Bilirubin Negative (NEGATIVE) 06/30/16 13:41 Urine Urobilinogen 1+ (NORMAL) 06/30/16 13:41 Ur Leukocyte Esterase 3+ (NEGATIVE) 06/30/16 13:41 Urine RBC 6-10 /HPF (NEGATIVE) 06/30/16 13:41 Urine WBC 25-50 /HPF (NEGATIVE) 06/30/16 13:41 Ur Squamous Epith Cells Rare /HPF (NEGATIVE) 06/30/16 13:41 Urine Bacteria 3+ /HPF (NEGATIVE) 06/30/16 13:41 Ur Culture Indicated? Yes/culture set up 06/30/16 13:41 - Plan (1) Altered mental status Status: Acute Qualifiers: Altered mental status type: somnolence Coma depth: C Coma timing: C Qualified Code(s): R40.0 - Somnolence Plan: CONTINUE TO MONITOR. (2) Poor nutrition Status: Acute Plan: CONTINUE PERIPHERAL TPN, IV FLUIDS, ALBUMIN, PUREED DIET, MONITOR. (3) Dehydration Status: Acute Plan: CONTINUE IV FLUIDS, MONITOR LABS. (4) E. coli UTI Status: Acute Plan: CONTINUE ZOSYN IV, MONITOR. (5) Hypokalemia Status: Acute Plan: CONTINUE POTASSIUM PROTOCOL, IV FLUIDS WITH POTASSIUM, MONITOR. (6) Sacral decubitus ulcer Status: Acute Qualifiers: Pressure ulcer stage: P Plan: CONTINUE WOUND CARE, MONITOR. (7) Hypernatremia Status: Acute Plan: CONTINUE IV FLUIDS LR, MONITOR LABS. (8) Hypotension Status: Acute Qualifiers: Hypotension type: other hypotension type Trimester: T Qualified Code(s): I95.89 - Other hypotension Plan: CONTINUE TO MONITOR. (9) Hyperkalemia Status: Acute Plan: ABOVE. (10) Renal failure Status: Acute Plan: ABOVE. (11) UTI (urinary tract infection) Status: Acute Qualifiers: Urinary tract infection type: acute cystitis Hematuria presence: with hematuria Indwelling urinary catheter type: I Encounter type: E Qualified Code(s): N30.01 - Acute cystitis with hematuria Plan: CONTINUE CATERINA, ELISE, MONITOR. (12) CHF (congestive heart failure) Status: Chronic Qualifiers: Congestive heart failure type: combined Congestive heart failure chronicity : chronic Qualified Code(s): I50.42 - Chronic combined systolic (congestive) and diastolic (congestive) heart failure (13) Dementia Status: Chronic Qualifiers: Dementia type: vascular dementia Alzheimer's disease onset: A Dementia behavioral disturbance: without behavioral disturbance Qualified Code(s): F01.50 - Vascular dementia without behavioral disturbance (14) HTN (hypertension) Status: Chronic Qualifiers: Hypertension type: essential hypertension Qualified Code(s): I10 - Essential (primary) hypertension (15) Hypothyroidism Status: Chronic Qualifiers: Hypothyroidism type: acquired Qualified Code(s): E03.9 - Hypothyroidism, unspecified
[2016-07-10] MEDS ORDERED: LR 1000 ML IV 1,000 ML IV SCH (08:00)
[2016-07-10] MEDS ORDERED: VERSED 50 MG in NS 50 ML IV 40 ML IV PRN (08:49)
[2016-07-10] MEDS ORDERED: PHARMACY CONSULT - DOSE _____ XX SCH ×2 (09:00→09:18)
[2016-07-10] MEDS ORDERED: COLACE CAP 100 MG PO SCH (09:00)
[2016-07-10] MEDS ORDERED: MILK OF MAGNESIA PO SCH (09:00)
[2016-07-10] MEDS ORDERED: MIRALAX POWDER (1 DOSE 17GM) PO SCH (09:00)
[2016-07-10] MEDS ORDERED: NS 500 ML IV 500 ML IV ONE (09:47)
[2016-07-10] MEDS: VERSED 50 MG in NS 50 ML IV 40 ML IV PRN ×2 (09:50→16:08)
[2016-07-10] MEDS ORDERED: NS 500 ML IV 500 ML IV SCH ×2 (10:00→11:00)
[2016-07-10] MEDS: MORPHINE SULFATE PCA 30 MG IVP PRN ×2 (10:02→16:01)
[2016-07-10] MEDS: CHECK PATCH XX SCH ×2 (10:07→20:40)
[2016-07-10] MEDS ORDERED: ARTIFICIAL TEARS DROPS EACHEYE SCH (21:00)
[2016-07-10 23:49] VITALS: BP 101/52
[2016-07-12] MEDS ORDERED: DURAGESIC 75 mcg/HR PATCH TD SCH (15:00)
== END 2016-07-10 23:35 | disposition expired | DRG 689 ==
LOC: ER 12:45 → ICU 14:45 → MED/SURG 07-10 15:25
PROVIDERS: ADMIT Obstetrics & Gynecology Obstetrics; ATTEND Internal Medicine
DX: N30.01 Acute cystitis with hematuria (principal); E87.5 Hyperkalemia; E86.0 Dehydration; I95.89 Other hypotension; R40.0 Somnolence; E87.0 Hyperosmolality and hypernatremia; E87.6 Hypokalemia; L89.153 Pressure ulcer of sacral region, stage 3; L89.311 Pressure ulcer of right buttock, stage 1; B96.4 Proteus (mirabilis) (morganii) as the cause of diseases classified elsewhere; I51.7 Cardiomegaly; B96.29 Other Escherichia coli [E. coli] as the cause of diseases classified elsewhere; N17.8 Other acute kidney failure; F01.50 Vascular dementia, unspecified severity, without behavioral disturbance, psychotic disturbance, mood disturbance, and anxiety; I50.42 Chronic combined systolic (congestive) and diastolic (congestive) heart failure; R53.1 Weakness; R94.4 Abnormal results of kidney function studies; E63.8 Other specified nutritional deficiencies; E03.8 Other specified hypothyroidism; I10 Essential (primary) hypertension; K21.9 Gastro-esophageal reflux disease without esophagitis; F32.89 Other specified depressive episodes; F41.8 Other specified anxiety disorders; I46.8 Cardiac arrest due to other underlying condition
CPT/HCPCS: 36415; 51702; 70450; 71010; 80048; 80053; 80076; 81001; 82550; 82553; 83735; 84132; 84484; 85025; 87070; 87077; 87086; 87088; 87186; 87205; 93005; 94640; 96367; 96374; 96375; 97535; 99284; A4216; A4222; B4189; J7030; P9047; S0179; J0290; J0610; J1335; J1450; J1815; J1940; J1956; J2175; J2250; J2271; J2405; J2543; J3480; J7120; J7613; J7620